=== PATIENT | female | born 1945 | race African-American/Black ===

== ENCOUNTER 2017-04-13 08:05 | Inpatient (IN) | payer OTHER ==
[2017-04-13] VITALS (15 sets, daily range): BP systolic 83–134; BP diastolic 53–72
[~2017-04-13] VITALS: Ht 157.5 cm; Wt 64.9 kg
--- NOTE | ~2017-04-13 | EKG ---
[address] [address] ELECTROCARDIOGRAM REPORT Name: ANN-MARIELIEN CARLOS Room #: 247-P ADM IN M.R.#: [id number] Admission: 04/13/17 Attend Phys: Gerardo Calhoun MD Discharge: Date of : 43 Report #: [id number] THIS REPORT FOR: //name// [facility] ED Test Date: 2017-04-13 Test Time: 08:29:14 Pat Name: LIEN JACOBSEN Department: Room: [facility] Gender: F Ride Mechanic: : 1945 Requested By: Peace Bailey Order Number: [id number] MD: Zachary Yu Measurements Intervals [place] Rate: 58 P: 58 VA: 194 QRS: -19 QRSD: 102 T: 29 QT: 465 QTc: 457 Interpretive Statements Sinus rhythm Borderline left axis deviation No previous ECG available for comparison Electronically Signed On 04-13-2017 20:21:13 CDT by Zachary Yu [email or web address] <ELECTRONICALLY SIGNED> By: Zachary Yu MD 04/13/172020 8 08 Zachary Yu MD /SABRINA
[2017-04-13 08:46] LABS: ANION GAP 8 mmol/L (7-16); BUN 42 mg/dL (7-18); CALCIUM 9.5 mg/dL (8.5-10.1); CHLORIDE 114 mmol/L (98-107); CO2 21 mmol/L (21-32); CREATININE 1.3 mg/dL (0.6-1.0); GLUCOSE 84 mg/dL (74-106); POTASSIUM 5.6 mmol/L (3.5-5.1); SODIUM 143 mmol/L (136-145)
[2017-04-13 08:50] LABS: ABSOLUTE NEUTROPHILS 4.4 thou/uL (1.4-8.2); BASOPHILS 0.5 % (0.0-2.0); EOSINOPHILS 0.7 % (0.0-3.0); HEMATOCRIT 32.2 % (37.0-47.0); HEMOGLOBIN 10.3 gm/dL (12.0-15.0); LYMPHOCYTES 9.9 % (24.0-44.0); MCH 26.6 pg (26.0-34.0); MCV 83.1 fL (80.0-100.0); MONOCYTES 2.3 % (1.0-8.0); PLATELET COUNT 309 thou/uL (150-400); POLYS 86.6 % (36.0-66.0); RBC 3.88 mil/uL (4.20-5.00); RDW 17.1 % (10.5-14.5); WBC 5.1 thou/uL (4.0-11.0)
[2017-04-13 08:52] LABS: ALBUMIN 3.7 g/dL (3.4-5.0); ALKALINE PHOSPHATASE 122 U/L (46-116); DIRECT BILIRUBIN < 0.1 mg/dL (<0.1-0.3); MANUAL DIFF NO; SGOT 33 U/L (15-37); SGPT 28 U/L (30-65); TOTAL BILIRUBIN 0.1 mg/dL (<0.1-1.0); TOTAL PROTEIN 7.5 g/dL (6.4-8.2)
[2017-04-13 08:54] LABS: URINE BILIRUBIN NEGATIVE (Negative); URINE BLOOD TRACE (Negative); URINE COLOR YELLOW; URINE GLUCOSE-RANDOM* NEGATIVE (Negative); URINE KETONES NEGATIVE (Negative); URINE NITRITE NEGATIVE (Negative); URINE PROTEIN (DIPSTICK) NEGATIVE (Negative); URINE UROBILINOGEN 0.2 E.U./dl (0.2-1.0)
[2017-04-13] MEDS ORDERED: AMLODIPINE BESY10 MG PO (11:19)
[2017-04-13] MEDS ORDERED: LIPITOR 20 MG T20 M1 PO (11:20)
[2017-04-13] MEDS ORDERED: FLONASE 0.05%50 MCG NASAL (11:21)
[2017-04-13] MEDS ORDERED: NEURONTIN 300300 M1 PO (11:21)
[2017-04-13] MEDS ORDERED: LANTUS100 UNIT/M SUBQ (11:22)
[2017-04-13] MEDS ORDERED: LISINOPRIL10 MG PO (11:23)
[2017-04-13] MEDS ORDERED: METFORMIN HCL500 MG PO (11:23)
[2017-04-13] MEDS ORDERED: PRILOSEC 20 MG20 MG PO (11:24)
[2017-04-14] VITALS (22 sets, daily range): BP systolic 90–159; BP diastolic 53–114
[2017-04-14 05:49] LABS: CALCIUM 8.3 mg/dL (8.5-10.1); CREATININE 1.2 mg/dL (0.6-1.0); HEMOGLOBIN 8.5 gm/dL (12.0-15.0); MCH 26.9 pg (26.0-34.0); MCHC 32.6 g/dL (28.0-37.0); MCV 82.3 fL (80.0-100.0); POTASSIUM 5.1 mmol/L (3.5-5.1); RBC 3.16 mil/uL (4.20-5.00); RDW 16.4 % (10.5-14.5); WBC 2.7 thou/uL (4.0-11.0)
[2017-04-15] VITALS (19 sets, daily range): BP systolic 102–153; BP diastolic 56–126
[2017-04-15 09:59] LABS: HEMATOCRIT 28.4 % (37.0-47.0); HEMOGLOBIN 9.4 gm/dL (12.0-15.0); MCHC 33.1 g/dL (28.0-37.0); MCV 81.4 fL (80.0-100.0); PLATELET COUNT 289 thou/uL (150-400); RBC 3.49 mil/uL (4.20-5.00); RDW 16.6 % (10.5-14.5); WBC 2.9 thou/uL (4.0-11.0)
[2017-04-15 10:02] LABS: MANUAL DIFF YES
[2017-04-15 10:08] LABS: CALCIUM 8.7 mg/dL (8.5-10.1); CREATININE 1.1 mg/dL (0.6-1.0); POTASSIUM 4.4 mmol/L (3.5-5.1)
[2017-04-15 11:07] LABS: ABSOLUTE NEUTROPHILS 1.8 thou/uL (1.4-8.2); ANISOCYTOSIS 1+; TOTAL CELL COUNT 100
[2017-04-16 04:18] VITALS: BP 118/72
[2017-04-16 05:10] LABS: ABSOLUTE NEUTROPHILS 2.1 thou/uL (1.4-8.2); BASOPHILS 1.1 % (0.0-2.0); EOSINOPHILS 2.7 % (0.0-3.0); HEMATOCRIT 27.9 % (37.0-47.0); HEMOGLOBIN 9.2 gm/dL (12.0-15.0); MCH 26.6 pg (26.0-34.0); MCHC 32.9 g/dL (28.0-37.0); MONOCYTES 8.4 % (1.0-8.0); PLATELET COUNT 275 thou/uL (150-400); POLYS 63.8 % (36.0-66.0); RBC 3.45 mil/uL (4.20-5.00); RDW 16.1 % (10.5-14.5); WBC 3.3 thou/uL (4.0-11.0)
[2017-04-16 05:14] LABS: MANUAL DIFF NO
[2017-04-16 05:19] LABS: CALCIUM 8.8 mg/dL (8.5-10.1); POTASSIUM 3.9 mmol/L (3.5-5.1)
== END 2017-04-16 13:34 | DRG 682 ==
LOC: ER 08:05 → EROBS 10:21 → ICU 10:21
PROVIDERS: Emergency Medicine; Family Medicine; Internal Medicine
DX: N17.9 Acute kidney failure, unspecified (principal); G93.40 Encephalopathy, unspecified; T68.XXXA Hypothermia, initial encounter; E11.649 Type 2 diabetes mellitus with hypoglycemia without coma; F03.90 Unspecified dementia, unspecified severity, without behavioral disturbance, psychotic disturbance, mood disturbance, and anxiety; E87.5 Hyperkalemia; Z79.899 Other long term (current) drug therapy; Z89.612 Acquired absence of left leg above knee; Z88.6 Allergy status to analgesic agent
CPT/HCPCS: 10203

== ENCOUNTER 2017-09-27 16:31 | Inpatient (IN) | payer OTHER ==
[~2017-09-27] VITALS: Ht 157.5 cm; Wt 62.1 kg
--- NOTE | ~2017-09-27 | EKG ---
[address] [address] ELECTROCARDIOGRAM REPORT Name: ANN-MARIELIEN Room #: 360-P ADM IN M.R.#: [id number] Admission: 09/27/17 Attend Phys: Mark Hart MD Discharge: Date of : 43 Report #: [id number] THIS REPORT FOR: //name// [facility] ED Test Date: 2017-09-27 Test Time: 16:33:59 Pat Name: LIEN JACOBSEN Department: Room: 360 Gender: F Traffic Rate Analyst: MARIA : 1945 Requested By: Opal Collins Order Number: [id number] MD: Zachary Yu Measurements Intervals [place] Rate: 53 P: 53 VA: 201 QRS: -10 QRSD: 107 T: 44 QT: 531 QTc: 499 Interpretive Statements Sinus rhythm Borderline ST elevation, lateral leads Compared to ECG 04/13/2017 08:29:14 Electronically Signed On 09-28-2017 7:23:47 CDT by Zachary Yu [email or web address] <ELECTRONICALLY SIGNED> By: Zachary Yu MD 09/28/17 07 32 32 Zachary Yu MD /SABRINA
[~2017-09-27 16:31] MED LIST: AMLODIPINE BESY10 MG PO; FLONASE 0.05%50 MCG NASAL; LANTUS100 UNIT/M SUBQ; LIPITOR 20 MG T20 M1 PO; LISINOPRIL10 MG PO; METFORMIN HCL500 MG PO; NEURONTIN 300300 M1 PO; PRILOSEC 20 MG20 MG PO
[2017-09-27 16:32] VITALS: BP 112/54
[2017-09-27 16:58] LABS: ABSOLUTE NEUTROPHILS 2.5 thou/uL (1.4-8.2); BASOPHILS 1.1 % (0.0-2.0); EOSINOPHILS 1.3 % (0.0-3.0); HEMATOCRIT 27.7 % (37.0-47.0); HEMOGLOBIN 8.9 gm/dL (12.0-15.0); LYMPHOCYTES 17.1 % (24.0-44.0); MCH 26.2 pg (26.0-34.0); MCHC 32.2 g/dL (28.0-37.0); MCV 81.4 fL (80.0-100.0); MONOCYTES 3.6 % (1.0-8.0); PLATELET COUNT 275 thou/uL (150-400); POLYS 76.9 % (36.0-66.0); RDW 16.6 % (10.5-14.5); WBC 3.3 thou/uL (4.0-11.0)
[2017-09-27 17:07] LABS: ANION GAP 8 mmol/L (7-16); BUN 24 mg/dL (7-18); CALCIUM 8.9 mg/dL (8.5-10.1); CHLORIDE 113 mmol/L (98-107); CO2 25 mmol/L (21-32); CREATININE 1.5 mg/dL (0.6-1.0); GLUCOSE 167 mg/dL (74-106); POTASSIUM 3.3 mmol/L (3.5-5.1); SODIUM 146 mmol/L (136-145)
[2017-09-27 17:15] LABS: ALBUMIN 3.1 g/dL (3.4-5.0); SGOT 23 U/L (15-37); SGPT 20 U/L (30-65); TOTAL BILIRUBIN 0.2 mg/dL (<0.1-1.0); TOTAL PROTEIN 6.6 g/dL (6.4-8.2); TROPONIN-I < 0.04 ng/mL (<0.06)
[2017-09-27] MEDS ORDERED: KLONOPIN0.5 MG PO (17:16)
[2017-09-27] MEDS ORDERED: PERCOCET 7.5-31 EACH PO (17:16)
[2017-09-27 17:21] LABS: URINE BILIRUBIN NEGATIVE (Negative); URINE BLOOD NEGATIVE (Negative); URINE CLARITY CLEAR; URINE COLOR YELLOW; URINE GLUCOSE-RANDOM* NEGATIVE (Negative); URINE KETONES NEGATIVE (Negative); URINE LEUKOCYTES NEGATIVE (Negative); URINE NITRITE NEGATIVE (Negative); URINE PROTEIN (DIPSTICK) NEGATIVE (Negative); URINE SPECIFIC GRAVITY 1.015 (1.005-1.035); URINE UROBILINOGEN 0.2 E.U./dl (0.2-1.0)
[2017-09-27] MEDS ORDERED: METFORMIN HCL500 MG PO (17:23)
[2017-09-27] MEDS ORDERED: MELATONIN3 MG PO (17:24)
[2017-09-27] MEDS ORDERED: LOPERAMIDE 2 MG2 M1 PO (17:24)
[2017-09-27] MEDS ORDERED: NOVOLOG100 UNIT/1 SUBQ (17:25)
[2017-09-27] MEDS ORDERED: VITAMIN D3400 UNIT PO (17:26)
[2017-09-27 18:22] LABS: PROTIME 10.4 Seconds (9.3-11.4)
[2017-09-27 19:05] VITALS: BP 134/58
[2017-09-27 19:42] VITALS: BP 125/62
[2017-09-27 20:25] VITALS: BP 138/58
[2017-09-28 00:17] VITALS: BP 134/61
[2017-09-28 04:30] VITALS: BP 129/60
[2017-09-28 09:41] LABS: CALCIUM 8.6 mg/dL (8.5-10.1); CREATININE 1.2 mg/dL (0.6-1.0)
[2017-09-28 09:44] LABS: POTASSIUM 4.3 mmol/L (3.5-5.1)
[2017-09-28] MEDS ORDERED: LOPERAMIDE 2 MG2 M1 PO (10:22)
[2017-09-28 11:36] VITALS: BP 122/63
[2017-09-28 15:52] VITALS: BP 141/68
[2017-09-28 19:16] VITALS: BP 133/74
[2017-09-29 04:27] VITALS: BP 113/49
[2017-09-29 05:15] LABS: HEMATOCRIT 25.9 % (37.0-47.0); HEMOGLOBIN 8.6 gm/dL (12.0-15.0); MCH 26.4 pg (26.0-34.0); MCHC 33.1 g/dL (28.0-37.0); MCV 79.6 fL (80.0-100.0); RBC 3.25 mil/uL (4.20-5.00); RDW 16.5 % (10.5-14.5); WBC 4.2 thou/uL (4.0-11.0)
[2017-09-29 05:31] LABS: CALCIUM 8.7 mg/dL (8.5-10.1); CREATININE 1.1 mg/dL (0.6-1.0); POTASSIUM 4.2 mmol/L (3.5-5.1)
[2017-09-29 07:19] VITALS: BP 111/66
[2017-09-29 11:12] VITALS: BP 118/65
[2017-09-29 15:11] VITALS: BP 118/69
== END 2017-09-29 17:12 | DRG 637 ==
LOC: ER 16:31 → 3W 18:53 → EROBS 18:53 → 3W 19:47
PROVIDERS: Hospitalist; Nurse Practitioner Family; Physician Assistant
DX: E11.649 Type 2 diabetes mellitus with hypoglycemia without coma (principal); E43 Unspecified severe protein-calorie malnutrition; N17.9 Acute kidney failure, unspecified; F03.90 Unspecified dementia, unspecified severity, without behavioral disturbance, psychotic disturbance, mood disturbance, and anxiety; T68.XXXA Hypothermia, initial encounter; D64.9 Anemia, unspecified; E86.0 Dehydration; E87.6 Hypokalemia; E11.40 Type 2 diabetes mellitus with diabetic neuropathy, unspecified; E78.5 Hyperlipidemia, unspecified; Z79.899 Other long term (current) drug therapy; Z89.512 Acquired absence of left leg below knee; Z88.6 Allergy status to analgesic agent; Z68.25 Body mass index [BMI] 25.0-25.9, adult
CPT/HCPCS: 10879

== ENCOUNTER 2018-01-09 16:52 | Inpatient (IN) | payer OTHER ==
[~2018-01-09] VITALS: Ht 157.5 cm; Wt 61.3 kg
[2018-01-09] VITALS (14 sets, daily range): BP systolic 114–160; BP diastolic 57–116
--- NOTE | ~2018-01-09 | EKG ---
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
--- NOTE | ~2018-01-09 | HC ---
[facility] [address] CONSULTATION Name: LIEN JACOBSEN Room #: 247-P ADM IN M.R.#: [id number] Admission: 01/09/18 Attend Phys: Gerardo Calhoun MD Discharge: Date of : 43 Report #: [id number] THIS REPORT FOR: //name// CC: Gerardo Russell REFERRING PHYSICIAN: Dr. Gerardo Calhoun. REASON FOR REFERRAL: Acute respiratory failure. HISTORY OF PRESENT ILLNESS: The patient is a 72-year-old female with diabetes mellitus type 2, difwbdbe-zz-lksvwi dementia, hypertension, brought to Emergency Room with an apparent altered mental status. She was unresponsive, was intubated on the field. A pulmonary consultation was requested. She resides at a nursing facility. She lives at [facility]. According to the staff, the patient was found to be unresponsive with no palpable pulse. CPR was administered. 911 was called. When EMS arrived, the patient's pulse was felt to be around 40 beats per minute with a systolic blood pressure of 80 mmHg. She was intubated in the field and subsequently transferred to the Emergency Room. On the field, the patient received atropine along with IV fluids. When she was in the ER, CT head was performed, which showed no acute changes. Her blood sugar was 27 mmHg. Dextrose was given. Repeat blood sugar was 111 mg/dL. Following administration of dextrose, patient's mental status appeared to have more improved. PAST MEDICAL HISTORY: Notable for diabetes mellitus type 2 with hyperlipidemia, neuropathy, dementia, generalized debility and weakness. PAST SURGICAL HISTORY: Left BKA. ALLERGIES: OXYCODONE, REACTION NOT SPECIFIED. MEDICATIONS: List from the skilled nursing is reviewed. This included vitamin D supplements, Imodium, Glucophage, melatonin, NovoLog insulin supplements, Lipitor, Flonase, Neurontin, Prilosec. FAMILY HISTORY: Noncontributory. SOCIAL HISTORY: Unknown. REVIEW OF SYSTEMS: Deferred as the patient is unable to answer questions. [facility] [address] [place] [address] CONSULTATION Name: LIEN JACOBSEN Room #: [facility] IN M.R.#: [id number] Admission: 01/09/18 Attend Phys: Gerardo Calhoun MD Discharge: Date of : 43 Report #: [id number] PHYSICAL EXAMINATION: GENERAL: She is now alert, extubated earlier this morning. She is in no apparent distress. VITAL SIGNS: Temperature 98.6 degrees Fahrenheit, pulse is 60, respiratory rate is 14, blood pressure 117/56 mmHg, saturation 100%. HEENT: Normocephalic, atraumatic. NECK: Supple. Negative lymphadenopathy or thyromegaly. CHEST: Breath sounds are clear bilaterally without any rales or wheezes. CARDIOVASCULAR: Normal S1, S2. There are no murmurs or gallop. There is no JVD. There is no carotid bruit. Pulses are 2+/4+ bilaterally. ABDOMEN: Soft, nontender, no organomegaly or masses felt. GENITOURINARY: Deferred. RECTAL: Deferred. EXTREMITIES: There is no edema, cyanosis or clubbing. LABORATORY DATA: Chest x-ray is clear. ET tube is approximately 1 cm at the zuleyma. CT head shows questionable mid brain and ricki low attenuation, otherwise there are no acute changes. Brain stem infarct cannot be excluded. A 2D mode echocardiogram showed normal LV function, ejection fraction approximately 55-60%, no shunting noted. Moderate mitral calcification with trace regurgitation, pulmonary artery pressure measuring 30 mmHg. Electrolytes, initial glucose was 26. Followup BMP, glucose was 148, electrolytes unremarkable except for creatinine of 1.6. WBC 5900, hemoglobin 8.7. Arterial blood gas revealed pH of 7.4, pCO2 of 39, pO2 of 629 on FiO2 of 100%. IMPRESSION: 1. Acute mental status change, encephalopathy in this 72-year-old female, probably due to profound hypoglycemia. No obvious evidence of CVA though questionable brainstem abnormalities. Neurologically, she is much more awake at this time. 2. Acute respiratory failure. Overnight, she was much more awake, alert, following commands. She was subsequently extubated. Currently stable with stable saturation. 3. Acute kidney injury due to above process. 4. Smzq-ml-sypurw dementia. 5. Progressive debility and weakness. 6. Hypothermia likely due to above process. RECOMMENDATION: Continue current care, follow blood glucose level closely as you are. Stable from pulmonary standpoint. Keep saturation at 92%. Wean O2 as tolerated. DVT and GI prophylaxis recommended. [address] [address] CONSULTATION Name: LIEN JACOBSEN Room #: 247-P ADM IN M.R.#: [id number] Admission: 01/09/18 Attend Phys: Gerardo Calhoun MD Discharge: Date of : 43 Report #: [id number] Thank you for this consultation. <ELECTRONICALLY SIGNED> By: Kenneth Krueger MD 01/11/18 1712 1254 1908 Kenneth Krueger MD /nt
--- NOTE | ~2018-01-09 | 2DMMODE ---
[facility] [address] [place] [address] 2 D/M-MODE ECHOCARDIOGRAM Name: LIEN JACOBSEN Room #: 247-P ADM IN M.R.#: [id number] Admission: 01/09/18 Attend Phys: Gerardo Calhoun, Discharge: Date of : 43 Date of Service: 01/10/18 1021 Report #: [id number] THIS REPORT FOR: //name// APPROVED REPORT Study performed: 01/10/2018 08:21:06 EXAM: Comprehensive 2D, Doppler, and color-flow Echocardiogram Patient Location: ICU Room #: [facility] Status: routine BSA: 1.64 HR: 60 bpm BP: 134/60 mmHg Other Information Study Quality: Good Indications Diabetes Hypertension/HDD Possible stroke 2D Dimensions RVDd: 32.59 mm LVEF(%): 57.57 (>50%) IVSd: 9.83 (7-11mm) LVOT Diam: 19.71 (18-24mm) LVDd: 42.58 mm PWd: 10.35 (7-11mm) Ascending Ao: 35.53 (22-36mm) LVDs: 29.80 (25-40mm) Aortic Root: 26.44 mm IVC: 18.00 mm Ruggiero's LVEF: 57.57 % Volumes Left Atrial Volume (Systole) Single Plane 4CH: 32.69 mL Single Plane 2CH: 55.36 mL LA ESV Index: 29.00 mL/m2 Aortic Valve AoV Peak Clifford.: 1.12 m/s AO Peak Gr.: 5.05 mmHg LVOT Max P.85 mmHg LVOT Max V: 0.84 m/s ANA Vmax: 2.29 cm2 Mitral Valve E/A Ratio: 0.8 [facility] [place] [address] 2 D/M-MODE ECHOCARDIOGRAM Name: LIEN JACOBSEN Room #: [address] [place] [address] IN .R.#: [id number] Admission: 01/09/18 Attend Phys: Gerardo Calhoun, Discharge: Date of : 43 Date of Service: 01/10/18 1021 Report #: [id number] MV Decel. Time: 206.74 ms MV E Max Clifford.: 1.03 m/s MV A Clifford.: 1.24 m/s MV PHT: 59.95 ms IVRT: 138.41 ms Pulmonary Valve PV Peak Clifford.: 1.08 m/s PV Peak Gr.: 4.65 mmHg Pulmonary Vein P Vein S: 0.58 m/s P Vein A: 0.38 m/s P Vein D: 0.32 m/s P Vein A Dur.: 147.6 msec P Vein S/D Ratio: 1.81 Tricuspid Valve TR Peak Clifford.: 2.53 m/s TR Peak Gr.: 25.65 mmHg PA Pressure: 30.00 mmHg Left Ventricle The left ventricle is normal size. There is normal LV segmental wall motion. Borderline concentric left ventricular hypertrophy. The left ventricular systolic function is normal. The left ventricular ejection fraction is within the normal range. LVEF is 55-60%. Grade I - abnormal relaxation pattern. Right Ventricle The right ventricle is normal size. The right ventricular systolic function is normal. Atria The left atrium size is normal. No shunting by contrast bubble injection The right atrium size is normal. Aortic Valve Aortic valve is calcified. No aortic regurgitation is present. There is no aortic valvular stenosis. Mitral Valve Moderate mitral annular calcification Trace mitral regurgitation. No evidence of mitral valve stenosis. Tricuspid Valve The tricuspid valve is normal in structure. There is trace tricuspid regurgitation. Estimated PAP 30 mmHg. There is no pulmonary hypertension. [facility] [address] [place] [address] 2 D/M-MODE ECHOCARDIOGRAM Name: LIEN JACOBSEN Room #: 247-P [facility] IN ..#: [id number] Admission: 01/09/18 Attend Phys: Gerardo Calhoun, Discharge: Date of : 43 Date of Service: 01/10/18 1021 Report #: [id number] Pulmonic Valve The pulmonary valve is normal in structure. There is no pulmonic valvular regurgitation. Great Vessels The aortic root is normal in size. IVC is normal in size and collapses >50% with inspiration. Pericardium There is no pericardial effusion. <Conclusion> The left ventricular systolic function is normal. There is normal LV segmental wall motion. LVEF is 55-60%. Mild diastolic dysfunction No shunting by contrast bubble injection Aortic valve is calcified. No aortic valvular stenosis or insufficiency. Moderate mitral annular calcification. Trace mitral regurgitation. There is trace tricuspid regurgitation. Estimated pulmonary artery pressure of 30 mmHg. There is no pericardial effusion. <ELECTRONICALLY SIGNED> By: Chente Gallegos MD, FACC 01/10/18 1021 1021 1021 Chente Gallegos MD, FACC /INF
[~2018-01-09 16:52] MED LIST changes: +KLONOPIN0.5 MG PO; +LOPERAMIDE 2 MG2 M1 PO; +MELATONIN3 MG PO; +NOVOLOG100 UNIT/1 SUBQ; +PERCOCET 7.5-31 EACH PO; +VITAMIN D3400 UNIT PO
[2018-01-09 17:09] LABS: HEMATOCRIT 26.2 % (37.0-47.0); HEMOGLOBIN 8.6 gm/dL (12.0-15.0); MCH 26.4 pg (26.0-34.0); MCHC 32.7 g/dL (28.0-37.0); MCV 80.8 fL (80.0-100.0); RBC 3.24 mil/uL (4.20-5.00); RDW 16.9 % (10.5-14.5); WBC 3.6 thou/uL (4.0-11.0)
[2018-01-09 17:17] LABS: ANION GAP 10 mmol/L (7-16); BUN 32 mg/dL (7-18); CALCIUM 9.3 mg/dL (8.5-10.1); CHLORIDE 113 mmol/L (98-107); CO2 25 mmol/L (21-32); CREATININE 1.6 mg/dL (0.6-1.0); POTASSIUM 3.9 mmol/L (3.5-5.1); SODIUM 148 mmol/L (136-145)
[2018-01-09 17:26] LABS: TROPONIN-I <0.06 ng/mL (<0.06)
[2018-01-09 17:28] LABS: GLUCOSE 27 mg/dL (74-106)
[2018-01-09 18:03] LABS: URINE BILIRUBIN NEGATIVE (Negative); URINE BLOOD NEGATIVE (Negative); URINE CLARITY CLEAR; URINE COLOR YELLOW; URINE GLUCOSE-RANDOM* NEGATIVE (Negative); URINE KETONES NEGATIVE (Negative); URINE LEUKOCYTES-REFLEX NEGATIVE (Negative); URINE NITRITE-REFLEX NEGATIVE (Negative); URINE PROTEIN (DIPSTICK) NEGATIVE (Negative); URINE UROBILINOGEN 0.2 E.U./dl (0.2-1.0)
[2018-01-09 18:55] LABS: BE(vivo) 0 mmol/L (-2 to +3); HCO3 24.5 mmol/L (22.0-26.0); PCO2 39.6 mmHg (35.0-45.0); PO2 629.2 mmHg (80.0-100.0); sO2 99.9 % (92.0-98.0)
[2018-01-10] VITALS (25 sets, daily range): BP systolic 100–151; BP diastolic 43–81
[2018-01-10 05:55] LABS: CALCIUM 8.6 mg/dL (8.5-10.1); CREATININE 1.3 mg/dL (0.6-1.0); MAGNESIUM 1.4 mg/dL (1.8-2.4); POTASSIUM 4.6 mmol/L (3.5-5.1)
[2018-01-10 06:00] LABS: HEMATOCRIT 26.7 % (37.0-47.0); HEMOGLOBIN 8.7 gm/dL (12.0-15.0); MCH 26.2 pg (26.0-34.0); MCHC 32.7 g/dL (28.0-37.0); MCV 80.2 fL (80.0-100.0); RBC 3.32 mil/uL (4.20-5.00); RDW 16.4 % (10.5-14.5); WBC 5.9 thou/uL (4.0-11.0)
[2018-01-11] VITALS (10 sets, daily range): BP systolic 136–165; BP diastolic 66–101
[2018-01-11 05:06] LABS: CALCIUM 8.7 mg/dL (8.5-10.1); CREATININE 1.1 mg/dL (0.6-1.0); MAGNESIUM 1.5 mg/dL (1.8-2.4); POTASSIUM 4.2 mmol/L (3.5-5.1)
[2018-01-11 06:47] LABS: HEMATOCRIT 29.7 % (37.0-47.0); HEMOGLOBIN 9.8 gm/dL (12.0-15.0); MCH 26.4 pg (26.0-34.0); MCHC 33.1 g/dL (28.0-37.0); MCV 79.7 fL (80.0-100.0); RBC 3.73 mil/uL (4.20-5.00); RDW 16.7 % (10.5-14.5); WBC 5.8 thou/uL (4.0-11.0)
[2018-01-12] VITALS: BP 155/70
[2018-01-12 02:00] VITALS: BP 148/74
[2018-01-12 04:00] VITALS: BP 140/73
[2018-01-12 06:00] VITALS: BP 110/64
[2018-01-12 07:07] LABS: HEMOGLOBIN 9.4 gm/dL (12.0-15.0); MCH 26.8 pg (26.0-34.0); MCHC 33.7 g/dL (28.0-37.0); MCV 79.5 fL (80.0-100.0); RBC 3.52 mil/uL (4.20-5.00); RDW 16.2 % (10.5-14.5); WBC 4.8 thou/uL (4.0-11.0)
[2018-01-12 07:15] LABS: CALCIUM 8.6 mg/dL (8.5-10.1); CREATININE 1.2 mg/dL (0.6-1.0); MAGNESIUM 1.3 mg/dL (1.8-2.4); POTASSIUM 4.2 mmol/L (3.5-5.1)
[2018-01-12] MEDS ORDERED: ASPIR 8181 MG PER TUBE (11:49)
== END 2018-01-12 14:00 | DRG 208 ==
LOC: ER 16:52 → ICU 18:30 → EROBS 18:30 → ICU 19:17
PROVIDERS: Emergency Medicine; Internal Medicine
PROC: 5A1935Z Respiratory Ventilation, Less than 24 Consecutive Hours (ICD-10-PCS; principal; 2018-01-09)
PROC: 0BH17EZ Insertion of Endotracheal Airway into Trachea, Via Natural or Artificial Opening (ICD-10-PCS; 2018-01-09)
DX: J96.00 Acute respiratory failure, unspecified whether with hypoxia or hypercapnia (principal); G93.40 Encephalopathy, unspecified; N17.0 Acute kidney failure with tubular necrosis; E87.0 Hyperosmolality and hypernatremia; E78.5 Hyperlipidemia, unspecified; E11.40 Type 2 diabetes mellitus with diabetic neuropathy, unspecified; F03.90 Unspecified dementia, unspecified severity, without behavioral disturbance, psychotic disturbance, mood disturbance, and anxiety; E11.649 Type 2 diabetes mellitus with hypoglycemia without coma; T68.XXXA Hypothermia, initial encounter; I12.9 Hypertensive chronic kidney disease with stage 1 through stage 4 chronic kidney disease, or unspecified chronic kidney disease; D63.8 Anemia in other chronic diseases classified elsewhere; E11.22 Type 2 diabetes mellitus with diabetic chronic kidney disease; N18.9 Chronic kidney disease, unspecified; E11.51 Type 2 diabetes mellitus with diabetic peripheral angiopathy without gangrene; E83.42 Hypomagnesemia; Z89.512 Acquired absence of left leg below knee; Z88.6 Allergy status to analgesic agent; Z89.612 Acquired absence of left leg above knee; Z79.82 Long term (current) use of aspirin; Z79.899 Other long term (current) drug therapy
CPT/HCPCS: 10078

== ENCOUNTER 2019-12-24 03:20 | Inpatient (IN) | payer OTHER ==
[~2019-12-24] VITALS: Ht 152.4 cm; Wt 55.3 kg
[2019-12-24] VITALS (38 sets, daily range): BP systolic 74–148; BP diastolic 26–92
[~2019-12-24 03:20] MED LIST changes: +ASPIR 8181 MG PER TUBE
[2019-12-24 03:47] LABS: HEMOGLOBIN 6.8 gm/dL (12.0-15.0); WBC 2.1 thou/uL (4.0-11.0)
[2019-12-24 03:49] LABS: HEMATOCRIT 21.1 % (37.0-47.0); MCH 26.4 pg (26.0-34.0); MCHC 32.1 g/dL (28.0-37.0); RBC 2.57 mil/uL (4.20-5.00); RDW 16.7 % (10.5-14.5)
[2019-12-24 03:53] LABS: ANION GAP 6 mmol/L (7-16); BUN 50 mg/dL (7-18); CALCIUM 8.6 mg/dL (8.5-10.1); CHLORIDE 113 mmol/L (98-107); CO2 27 mmol/L (21-32); CREATININE 2.7 mg/dL (0.6-1.0); GLUCOSE 98 mg/dL (74-106); SODIUM 146 mmol/L (136-145)
[2019-12-24] MEDS ORDERED: GAS RELIEF125 MG PO (03:57)
[2019-12-24] MEDS ORDERED: NOVOLOG100 UNIT/M SUBQ (03:58)
[2019-12-24] MEDS ORDERED: IMODIUM A-D2 M1 PO (03:59)
[2019-12-24] MEDS ORDERED: LORATIDINE 10 M10 M1 PO (03:59)
[2019-12-24] MEDS ORDERED: GLUCAGON EMERGEN1 MG SUBQ (04:00)
[2019-12-24] MEDS ORDERED: FAMOTIDINE 20 M20 MG PO (04:01)
[2019-12-24 04:02] LABS: ALBUMIN 2.7 g/dL (3.4-5.0); DIRECT BILIRUBIN < 0.1 mg/dL (<0.1-0.2); SGOT 26 U/L (15-37); SGPT 23 U/L (30-65); TOTAL BILIRUBIN < 0.1 mg/dL (0.2-1.0); TOTAL PROTEIN 5.7 g/dL (6.4-8.2); TROPONIN-I <0.06 ng/mL (<0.06)
[2019-12-24 04:37] LABS: URINE BILIRUBIN NEGATIVE (Negative); URINE BLOOD NEGATIVE (Negative); URINE CLARITY CLEAR; URINE COLOR YELLOW; URINE GLUCOSE-RANDOM* NEGATIVE (Negative); URINE KETONES NEGATIVE (Negative); URINE LEUKOCYTES-REFLEX NEGATIVE (Negative); URINE NITRITE-REFLEX NEGATIVE (Negative); URINE PROTEIN (DIPSTICK) NEGATIVE (Negative); URINE UROBILINOGEN 0.2 E.U./dl (0.2-1.0)
--- NOTE | 2019-12-24 07:31 | EKG ---
[facility] [place] [address] ELECTROCARDIOGRAM REPORT Name: LIEN JACOBSEN Room #: 246-P ADM IN M.R.#: [id number] Admission: 12/24/19 Attend Phys: Jenni Zaman MD Discharge: Date of : 43 Report #: [id number] THIS REPORT FOR: cc: Oscar Randle James D. DO Lundgren, Craig H. MD [facility] ~ THIS REPORT FOR: //name// [facility] ED Test Date: 2019-12-24 Test Time: 03:30:02 Pat Name: LIEN JACOBSEN Department: Room: [facility] Gender: F Contact Lens Polisher: no : 1945 Requested By: Becky Huffman Order Number: [id number] MD: Chente Gallegos Measurements Intervals [place] Rate: 48 P: 46 IL: 206 QRS: -11 QRSD: 102 T: 49 QT: 533 QTc: 477 Interpretive Statements Sinus bradycardia Otherwise no significant abnormality Compared to ECG 01/09/2018 18:06:00 Heart rate has slowed Electronically Signed On 12-24-2019 7:30:28 CDT by Chente Gallegos [email or web address] <ELECTRONICALLY SIGNED> By: Chente Gallegos MD, [facility] 12/24/19 0730 0330 0330 Chente Gallegos MD, [facility] /EPI
[2019-12-24 10:15] LABS: CALCIUM 8.9 mg/dL (8.5-10.1); CREATININE 2.4 mg/dL (0.6-1.0)
[2019-12-24 10:24] LABS: ALBUMIN 3.2 g/dL (3.4-5.0); TOTAL BILIRUBIN 0.2 mg/dL (0.2-1.0); TOTAL PROTEIN 7.2 g/dL (6.4-8.2)
--- NOTE | 2019-12-24 12:02 | 2DMMODE ---
[facility] [address] [place] [address] 2 D/M-MODE ECHOCARDIOGRAM Name: LIEN JACOBSEN Room #: 246-P ADM IN M.R.#: [id number] Admission: 12/24/19 Attend Phys: Jenni Zaman MD Discharge: Date of : 43 Report #: [id number] THIS REPORT FOR: cc: Oscar Randle James D. DO Lammoglia, Francisco J. MD ~ APPROVED REPORT Study performed: 12/24/2019 11:02:23 EXAM: Comprehensive 2D, Doppler, and color-flow Echocardiogram Patient Location: ICU Room #: 246 Status: routine BSA: 1.74 HR: 86 bpm BP: 133/45 mmHg Rhythm: NSR Other Information Study Quality: Adequate/patient curled up on her right side. Technically limited study due to uncooperative, combative patient. Not all measurements taken. Indications Bradycardia, HTN, HLD. 2D Dimensions IVSd: 10.47 (7-11mm) LVOT Diam: 19.86 (18-24mm) LVDd: 39.88 mm PWd: 9.32 (7-11mm) Ascending Ao: 28.20 (22-36mm) LVDs: 27.08 (25-40mm) Aortic Root: 28.33 mm Aortic Valve AoV Peak Clifford.: 1.43 m/s AO Peak Gr.: 8.19 mmHg LVOT Max P.96 mmHg LVOT Max V: 1.00 m/s ANA Vmax: 2.16 cm2 Mitral Valve E/A Ratio: 0.6 MV Decel. Time: 215.[address] [facility] [address] [place] [address] 2 D/M-MODE ECHOCARDIOGRAM Name: THOMAS JACOBSENINE Room #: 246-P [facility] IN [facility].#: [id number] Admission: 12/24/19 Attend Phys: Traci Sharp Discharge: Date of : 43 Report #: [id number] MV E Max Clifford.: 0.67 m/s MV A Clifford.: 1.15 m/s MV PHT: 62.35 ms Pulmonary Valve PV Peak Clifford.: 1.16 m/s PV Peak Gr.: 5.41 mmHg Tricuspid Valve TR Peak Clifford.: 2.44 m/s RAP Estimate: 5.00 mmHg TR Peak Gr.: 24.00 mmHg PA Pressure: 29.00 mmHg Left Ventricle The left ventricle is normal size. There is normal LV segmental wall motion. There is normal left ventricular wall thickness. Left ventricular systolic function is normal. LVEF is 60-65%. Mild diastolic dysfunction is present (impaired relaxation pattern). Right Ventricle The right ventricle is normal size. The right ventricular systolic function is normal. Atria The left atrium size is normal. The right atrium size is normal. Aortic Valve Aortic valve is mildly calcified. No aortic regurgitation is present. There is no aortic valvular stenosis. Mitral Valve Mitral valve leaflets are mildly thickened. Mild mitral annular calcification. Trace mitral regurgitation. No evidence of mitral valve stenosis. Tricuspid Valve The tricuspid valve is normal in structure. Trace tricuspid regurgitation. Estimated PAP is 30mmHg. Pulmonic Valve Pulmonic valve is not well visualized. Great Vessels The aortic root is normal in size. The ascending aorta is normal in size. IVC is normal in size and collapses >50% with [facility] [address] [place] [address] 2 D/M-MODE ECHOCARDIOGRAM Name: ANN-MARIELIEN Room #: 246-P [facility] IN M.R.#: [id number] Admission: 12/24/19 Attend Phys: Traci Sharp Discharge: Date of : 43 Report #: [id number] inspiration. Pericardium There is no pericardial effusion. <Conclusion> The left ventricle is normal size. LVEF is 60-65%. Aortic valve is mildly calcified. Mitral valve leaflets are mildly thickened. Mild mitral annular calcification. Trace mitral regurgitation. The tricuspid valve is normal in structure. Trace tricuspid regurgitation. Estimated PAP is 30mmHg. Pulmonic valve is not well visualized. There is no pericardial effusion. <ELECTRONICALLY SIGNED> By: Fahad Wheeler MD 12/24/19 1201 120 1201 Fahad Wheeler MD /INF
[2019-12-24] MEDS ORDERED: CALCIUM 600 +1 EA17 PO (12:19)
[2019-12-24] MEDS ORDERED: IRON18 M1 (12:24)
[2019-12-24] MEDS ORDERED: MAG-OXIDE400 MG PO (12:26)
[2019-12-24 13:40] LABS: HEMATOCRIT 30.1 % (37.0-47.0); MCH 26.4 pg (26.0-34.0); MCV 82.6 fL (80.0-100.0); RBC 3.64 mil/uL (4.20-5.00); RDW 17.4 % (10.5-14.5); WBC 3.5 thou/uL (4.0-11.0)
[2019-12-24 13:47] LABS: HEMOGLOBIN 9.6 gm/dL (12.0-15.0)
[2019-12-25] VITALS (25 sets, daily range): BP systolic 99–152; BP diastolic 38–64
[2019-12-25 06:09] LABS: ABSOLUTE NEUTROPHILS 3.2 thou/uL (1.4-8.2); BASOPHILS 1.4 % (0.0-2.0); EOSINOPHILS 0.4 % (0.0-3.0); HEMOGLOBIN 7.8 gm/dL (12.0-15.0); LYMPHOCYTES 14.8 % (24.0-44.0); MCH 26.6 pg (26.0-34.0); MCHC 32.6 g/dL (28.0-37.0); MCV 81.6 fL (80.0-100.0); MONOCYTES 5.5 % (1.0-8.0); PLATELET COUNT 263 thou/uL (150-400); POLYS 77.9 % (36.0-66.0); RBC 2.94 mil/uL (4.20-5.00); RDW 16.9 % (10.5-14.5); WBC 4.1 thou/uL (4.0-11.0)
[2019-12-25 06:26] LABS: CALCIUM 8.4 mg/dL (8.5-10.1); CREATININE 2.4 mg/dL (0.6-1.0); MAGNESIUM 2.6 mg/dL (1.8-2.4); POTASSIUM 5.4 mmol/L (3.5-5.1)
--- NOTE | 2019-12-25 07:48 | EKG ---
[facility] [place] [address] ELECTROCARDIOGRAM REPORT Name: LIEN JACOBSEN Room #: 246-P ADM IN M.R.#: [id number] Admission: 12/24/19 Attend Phys: Jenni Zaman MD Discharge: Date of : 43 Report #: [id number] THIS REPORT FOR: cc: Oscar Randle James D. DO Lundgren, Craig H. MD [facility] ~ THIS REPORT FOR: //name// [facility] Test Date: 2019-12-24 Test Time: 09:02:11 Pat Name: LIEN JACOBSEN Department: Room: 246 Gender: F It Recruiter: Ray KEN : 1945 Requested By: Jenni Zaman Order Number: [id number] MD: Chente Gallegos Measurements Intervals [place] Rate: 77 P: 56 CT: 215 QRS: -12 QRSD: 101 T: 69 QT: 422 QTc: 478 Interpretive Statements Sinus rhythm Borderline prolonged CT interval Compared to ECG 12/24/2019 03:30:02 Sinus bradycardia no longer present Electronically Signed On 12-25-2019 7:47:12 CDT by Chente Gallegos [email or web address] <ELECTRONICALLY SIGNED> By: Chente Gallegos MD, [facility] 12/25/19 0747 0902 09 Chente Gallegos MD, [facility] /EPI
[2019-12-26] VITALS (25 sets, daily range): BP systolic 82–148; BP diastolic 23–116
[2019-12-26 05:43] LABS: HEMATOCRIT 26.3 % (37.0-47.0); HEMOGLOBIN 8.4 gm/dL (12.0-15.0); MCH 26.3 pg (26.0-34.0); MCHC 32.1 g/dL (28.0-37.0); MCV 81.9 fL (80.0-100.0); RBC 3.21 mil/uL (4.20-5.00); RDW 16.8 % (10.5-14.5); WBC 3.2 thou/uL (4.0-11.0)
[2019-12-26 07:58] LABS: CALCIUM 8.7 mg/dL (8.5-10.1); CREATININE 1.8 mg/dL (0.6-1.0); POTASSIUM 4.6 mmol/L (3.5-5.1)
[2019-12-27] VITALS (15 sets, daily range): BP systolic 121–166; BP diastolic 43–91
[2019-12-28 00:45] VITALS: BP 151/94
[2019-12-28 04:45] VITALS: BP 152/91
[2019-12-28 08:34] VITALS: BP 129/94
[2019-12-28 09:06] VITALS: BP 129/94
== END 2019-12-28 13:39 | DRG 637 ==
LOC: ER 03:20 → ICU 06:15 → EROBS 06:15 → ICU 06:41 → 2N 12-27 14:39
PROVIDERS: Emergency Medicine; Nurse Practitioner; Nurse Practitioner Adult Health; ADMIT Hospitalist; ATTEND Hospitalist
PROC: 02HV33Z Insertion of Infusion Device into Superior Vena Cava, Percutaneous Approach (ICD-10-PCS; principal; 2019-12-24)
DX: E11.649 Type 2 diabetes mellitus with hypoglycemia without coma (principal); R57.1 Hypovolemic shock; G93.41 Metabolic encephalopathy; E43 Unspecified severe protein-calorie malnutrition; E87.0 Hyperosmolality and hypernatremia; I44.1 Atrioventricular block, second degree; N17.0 Acute kidney failure with tubular necrosis; Z20.828 Contact with and (suspected) exposure to other viral communicable diseases; E78.5 Hyperlipidemia, unspecified; F03.90 Unspecified dementia, unspecified severity, without behavioral disturbance, psychotic disturbance, mood disturbance, and anxiety; I95.9 Hypotension, unspecified; E11.51 Type 2 diabetes mellitus with diabetic peripheral angiopathy without gangrene; E11.42 Type 2 diabetes mellitus with diabetic polyneuropathy; D64.9 Anemia, unspecified; Z68.24 Body mass index [BMI] 24.0-24.9, adult; T68.XXXA Hypothermia, initial encounter; E55.9 Vitamin D deficiency, unspecified; E87.5 Hyperkalemia; E11.65 Type 2 diabetes mellitus with hyperglycemia; D72.819 Decreased white blood cell count, unspecified; I08.1 Rheumatic disorders of both mitral and tricuspid valves; Z89.512 Acquired absence of left leg below knee; Z88.6 Allergy status to analgesic agent
CPT/HCPCS: 10078; 10081; 10203

== ENCOUNTER 2020-02-06 22:14 | Inpatient (IN) | payer OTHER ==
[~2020-02-06] VITALS: Ht 157.5 cm; Wt 60.1 kg
[~2020-02-06 22:14] MED LIST changes: +CALCIUM 600 +1 EA17 PO; +FAMOTIDINE 20 M20 MG PO; +GAS RELIEF125 MG PO; +GLUCAGON EMERGEN1 MG SUBQ; +IMODIUM A-D2 M1 PO; +IRON18 M1; +LORATIDINE 10 M10 M1 PO; +MAG-OXIDE400 MG PO; +NOVOLOG100 UNIT/M SUBQ
[2020-02-06 22:31] VITALS: BP 91/39
[2020-02-06 23:28] LABS: PLATELET COUNT 264 thou/uL (150-400); WBC 6.2 thou/uL (4.0-11.0)
[2020-02-06 23:30] LABS: HEMOGLOBIN 6.5 gm/dL (12.0-15.0); MCH 27.2 pg (26.0-34.0); MCV 82.4 fL (80.0-100.0); RBC 2.39 mil/uL (4.20-5.00); RDW 18.3 % (10.5-14.5)
[2020-02-06 23:40] LABS: HEMATOCRIT 19.7 % (37.0-47.0)
[2020-02-07 00:02] LABS: CALCIUM 8.7 mg/dL (8.5-10.1); CREATININE 2.6 mg/dL (0.6-1.0); POTASSIUM 4.3 mmol/L (3.5-5.1)
[2020-02-07] MEDS ORDERED: GLIPIZIDE 10 MG10 MG PO (00:07)
[2020-02-07 00:08] LABS: ALBUMIN 2.5 g/dL (3.4-5.0); TOTAL BILIRUBIN 0.2 mg/dL (0.2-1.0); TOTAL PROTEIN 6.4 g/dL (6.4-8.2)
[2020-02-07] MEDS ORDERED: NOVOLOG100 UNIT/M SUBQ (00:08)
[2020-02-07 00:29] LABS: URINE BILIRUBIN NEGATIVE (Negative); URINE BLOOD TRACE (Negative); URINE CLARITY CLOUDY; URINE COLOR YELLOW; URINE GLUCOSE-RANDOM* NEGATIVE (Negative); URINE KETONES NEGATIVE (Negative); URINE NITRITE-REFLEX NEGATIVE (Negative); URINE PROTEIN (DIPSTICK) TRACE (Negative); URINE SPECIFIC GRAVITY 1.015 (1.005-1.035); URINE UROBILINOGEN 0.2 E.U./dl (0.2-1.0)
[2020-02-07 00:35] LABS: URINE LEUKOCYTES-REFLEX 3+ (Negative)
[2020-02-07 01:04] LABS: BACTERIA-REFLEX >30 Many /HPF (None Seen); CASTS None Seen /LPF (None Seen); CRYSTALS None Seen /LPF (None Seen); MUCUS 0-3 Light strn/LPF (None Seen); SQUAMOUS 0-3 Few /LPF (0-3); URINE RBC 0-2 Rare /HPF (0-2); URINE WBC-REFLEX 6-15 Few /HPF (0-5)
[2020-02-07 01:20] LABS: ABSOLUTE NEUTROPHILS 5.1 thou/uL (1.4-8.2)
[2020-02-07 01:21] LABS: LARGE PLATELETS FEW; PLATELET ESTIMATE NORMAL
[2020-02-07 06:37] VITALS: BP 110/74; BP 121/43; BP 122/74; BP 123/48
[2020-02-07 07:13] VITALS: BP 122/47
--- NOTE | 2020-02-07 07:38 | EKG ---
[facility] [place] [address] ELECTROCARDIOGRAM REPORT Name: LIEN JACOBSEN Room #: 359-P ADM IN M.R.#: [id number] Admission: 02/07/20 Attend Phys: Mark Hart MD Discharge: Date of : 43 Report #: [id number] THIS REPORT FOR: cc: Oscar Randle James D. DO Lundgren, Craig H. 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: Solo : 1945 Requested By: Vasile Rowley Order Number: [id number] MD: Chente Gallegos Measurements Intervals [place] Rate: 54 P: 48 SD: 174 QRS: -3 QRSD: 96 T: 61 QT: 440 QTc: 417 Interpretive Statements Sinus bradycardia Poor R wave progression Compared to ECG 02/06/2020 22:38:44 No significant changes Electronically Signed On 02-07-2020 7:38:36 CDT by Chente Gallegos [email or web address] <ELECTRONICALLY SIGNED> By: Chente Gallegos MD, [facility] 02/07/20 0738 0030 0030 Chente Gallegos MD, [facility] /EPI
--- NOTE | 2020-02-07 07:38 | EKG ---
[facility] [place] [address] ELECTROCARDIOGRAM REPORT Name: LIEN JACOBSEN Room #: 359- ADM IN M.R.#: [id number] Admission: 02/07/20 Attend Phys: Mark Hart MD Discharge: Date of : 43 Report #: [id number] THIS REPORT FOR: cc: Oscar Randle James D. DO Lundgren, Craig H. MD [facility] ~ THIS REPORT FOR: //name// [facility] ED Test Date: 2020-02-06 Test Time: 22:38:44 Pat Name: LIEN JACOBSEN Department: Room: [facility] Gender: F Change Control Manager: no : 1945 Requested By: Vasile Rowley Order Number: [id number] MD: Chente Gallegos Measurements Intervals [place] Rate: 52 P: 42 WI: 171 QRS: -3 QRSD: 97 T: 57 QT: 444 QTc: 413 Interpretive Statements Sinus bradycardia Poor R wave progression Compared to ECG 12/24/2019 09:02:11 No significant change was found Electronically Signed On 02-07-2020 7:38:00 CDT by Chente Gallegos [email or web address] <ELECTRONICALLY SIGNED> By: Chente Gallegos MD, [facility] 02/07/20 0738 2238 37 Chente Gallegos MD, [facility] /EPI
--- NOTE | 2020-02-07 08:02 | NUR ---
PT ARRIVED TO THE UNIT WITH ONE ED SENIOR SQL DBA, PT IS IN PROCESS OF RECEIVING A UNIT OF BLOOD TRANSFUSION, TRANSFUSION BEGAN AT ED, AND CONTINUING ON OUR FLOOR. UPON ARRIVAL THE SETTING WAS SET TO 150ML/HR AND APPROXIMATELY 2.5 HOURS OF INFUSING REMAINING. PT'S VS ARE STABLE (100% RA, 62HR, RR16, BP 134/51, TEMP 94.5) PT IS LETHARGIC, IMPULSIVE AND TRYING TO GET OUT OF BED. DOES NOT APPEAR TO BE IN PAIN, CURRENTLY RESTING AT THIS TIME. NO BELONGINGS PRESENT WITH THE PATIENT UPON ARRIVAL. BLOOD ADMINISTRATION WORK SHEET IN THE CHART, ED TRANSF[facility]ION [facility]. WILL UPDATE TRANSFUSION HERE.
[2020-02-07 08:30] VITALS: BP 134/51
[2020-02-07 10:40] VITALS: BP 110/47
[2020-02-07 14:37] LABS: HEMATOCRIT 26.7 % (37.0-47.0)
[2020-02-07 14:44] LABS: HEMOGLOBIN 8.6 gm/dL (12.0-15.0)
[2020-02-07 15:41] VITALS: BP 112/51
--- NOTE | 2020-02-07 16:08 | NUR ---
INITIAL ASSESSMENT: ETHAN reviewed chart and spoke with nursing and attending physician. Pt was admitted from [facility] due to anemia. Pt placed in Enhanced Isolation to r/o COVID-19. Pt's test is negative. Pt has received a blood transfusion. Plan is for pt to have an EGD tomorrow. ETHAN obtained DPOA ppwk from [facility]. DPOA is listed as Claudette Aleman. Alternate is Alicia Jauregui. Alicia listed as contact in [employer]. ETHAN spoke with Alicia via phone. Claudette Aleman is . Copy of ppwk faxed to [address] on pt's chart. Alicia confirmed plan is for pt to return to [facility] when medically stable. ETHAN provided update to [facility] post-acute liaison and faxed info/COVID test results for review. Pt will need a repeat COVID test with 48 hours of discharge. ETHAN is following to assist as needed with discharge planning.
[2020-02-07 20:04] VITALS: BP 136/49
--- NOTE | 2020-02-08 03:33 | NUR ---
PATIENT TRANSFERED FROM AT AROUND 1900.PATIENT AOX1 CONFUSED AND FORGETFUL. PATIENT HAS BEEN NPO THIS SHIFT FOR EGD IN THE AM. NO BLEEDING NOTED THIS SHIFT.PATIENT TURNED Q 2 HOURS. PATIENT INCONTIENT PERICARE AND BARRIER CREAM APPLIED NEEDED. FALL PRECAUTION IN PLACE. PATIENT IN BED ASLEEP AT THIS TIME BREATHING REGULAR AND UNLABOURED.
[2020-02-08 05:51] LABS: HEMATOCRIT 26.5 % (37.0-47.0); HEMOGLOBIN 8.3 gm/dL (12.0-15.0); MCH 27.4 pg (26.0-34.0); MCHC 31.2 g/dL (28.0-37.0); RBC 3.03 mil/uL (4.20-5.00); RDW 18.4 % (10.5-14.5); WBC 3.8 thou/uL (4.0-11.0)
[2020-02-08 05:54] LABS: MCV 87.6 fL (80.0-100.0)
[2020-02-08 06:03] LABS: CALCIUM 8.6 mg/dL (8.5-10.1); CREATININE 1.7 mg/dL (0.6-1.0); MAGNESIUM 1.6 mg/dL (1.8-2.4); POTASSIUM 4.7 mmol/L (3.5-5.1)
[2020-02-08 08:22] VITALS: BP 130/57
--- NOTE | 2020-02-08 10:49 | NUR ---
CARE TEAM INDICATED THAT PT IS TO HAVE AN EGD THIS DAY. REPEAT COVID TEST TO BE COMPLETED TODAY. IT HAD BEEN INDICATED THAT PT WILL LIKELY BE MEDICALLY STABLE TO DC BACK TO [facility] OVER THE WEEKEND. CM NOTIFIED DILCIA [facility]DA POST ACUTE LIAISON OF THE ABOVE. CM TO FOLLOW INDICATED WITH DC PLANNING.
--- NOTE | 2020-02-08 12:36 | NUR ---
PT IS FROM [facility] FAXED CLINICAL UPDATE SPOKE WITH DILCIA IN ADM SHE RECEIVED UPDATE. DP TO FOLLOW.
--- NOTE | 2020-02-08 17:48 | NUR ---
ASSUMED CARE OF PATIENT AT SHIFT CHANGE. ASSESSMENT CHARTED. MEDS GIVEN PER MAR CRUSHED IN APPLESAUCE. PATIENT HAD AN EGD DONE TODAY. WHEN RETURNED THE IV WAS LEAKING. PLACEMENT WAS ATTEMPTED BY ANGEL SALMON. PATIENT IS ORIENTED TO HERSELF AND CONFUSED. SHE STARTED TO CRY AFTER TALKING TO HER DAUGHTER. PATIENT IS VERY RESTLESS. BED ALARM IS ON AND PATIENT IS NEAR NURSES STATION. DENIES PAIN AND DOES NOT DISPLAY ANY SIGNS OF PAIN. VOICES NO OTHER NEEDS AT THIS TIME. WILL CONTINUE TO MONITOR AND FOLLOW PLAN OF CARE
[2020-02-08 19:35] VITALS: BP 140/54
--- NOTE | 2020-02-09 04:10 | NUR ---
PATIENT AOX1 CONFUSED AND FORGETFUL. NO S/S OF PAIN OR DISCOMFORT NOTED THIS SHIFT.NO BLEEDING NOTED THIS SHIFT. PATIENT INCONTIENT THIS SHIFT PERICARE AND BARRIER CREAM APPLIED NEEDED.PATIENT IMPULSIVE THIS SHIFT. PATIENT ENCOURAGED FLUIDS AND SNACKS THIS SHIFT. FALL PRECAUTION IN PLACE. PATIENT AWAKE IN BED TRYING TO CLIMB OUT OF THE BED. WILL CONTINUE TO MONITOR PATIENT FOR SAFETY.
[2020-02-09 07:27] VITALS: BP 149/71
--- NOTE | 2020-02-09 12:04 | NUR ---
Received awake on bed. A+O to self only; Hx dementia. On MS, not on telemetry; no chest pain, crushing sensation and heaviness. On room air; saturating at 100%. On soft fiber restricted; assisted and encouraged in eating and drinking; no nausea, no vomiting and no abdominal pain noted. On blood sugar monitoring; taken and recorded accordingly; with sliding scale ordered. A/w stool sample for stool occult. Incontinent of bowel and bladder, checked frequently and changed as needed. Falls bundle in place. Assisted in ADLs. With NS at 75cc/hr, infusing well at L FA. With L BKA- stump intact, no dressing in place; no bleeding and signs of infection noted. To continue monitoring patient. W/E patient case manager called and said pt needs covid swab.
[2020-02-09 14:52] VITALS: BP 137/72
[2020-02-09 22:36] VITALS: BP 140/65
[2020-02-09 22:37] VITALS: BP 140/65
[2020-02-10 07:24] VITALS: BP 184/97
--- NOTE | 2020-02-10 07:41 | NUR ---
ASSUMED PT CARE AROUND 1930. VSS. INSULIN HELD FOR EPISODE OF HYPOGLYCEMIA. ALERT BUT DOES NOT FOLLOW ANY VERBAL COMMANDS AT THIS TIME. NO S/S ACUTE DISTRESS NOTED OR REPORTED AT THIS TIME. CARE TRANSFERRED TO AM RN AT THIS TIME.
[2020-02-10 08:05] LABS: HEMATOCRIT 28.9 % (37.0-47.0); HEMOGLOBIN 9.4 gm/dL (12.0-15.0); MCH 27.1 pg (26.0-34.0); MCHC 32.6 g/dL (28.0-37.0); MCV 82.9 fL (80.0-100.0); RBC 3.49 mil/uL (4.20-5.00); RDW 18.1 % (10.5-14.5); WBC 4.5 thou/uL (4.0-11.0)
[2020-02-10 08:19] LABS: CALCIUM 8.5 mg/dL (8.5-10.1); CREATININE 1.3 mg/dL (0.6-1.0); POTASSIUM 3.6 mmol/L (3.5-5.1)
[2020-02-10 15:51] VITALS: BP 143/92
[2020-02-10 19:41] VITALS: BP 121/86
--- NOTE | 2020-02-10 21:19 | NUR ---
Assumed pt care this am, pt is a feeder and very confused ,medications taken with apple sauce. diet is tolerated well, frequent visits and hydration done through out the sift. POC followed with no signs or verbalizations of distress noted. Pt is able to turn on her own. endorsed tot he night nurse.
--- NOTE | 2020-02-11 04:08 | NUR ---
care assumed at 1900 patient was in bed asleep.patient aox1 confused and forgetful. fall precaution in place. patient in bed asleep at this time breathing regular and unlaboured.
[2020-02-11 05:50] LABS: HEMATOCRIT 26.6 % (37.0-47.0); HEMOGLOBIN 8.8 gm/dL (12.0-15.0); MCH 27.2 pg (26.0-34.0); MCHC 33.1 g/dL (28.0-37.0); MCV 82.3 fL (80.0-100.0); RBC 3.23 mil/uL (4.20-5.00); RDW 18.3 % (10.5-14.5); WBC 4.3 thou/uL (4.0-11.0)
[2020-02-11 06:04] LABS: CALCIUM 8.4 mg/dL (8.5-10.1); CREATININE 1.2 mg/dL (0.6-1.0); POTASSIUM 3.7 mmol/L (3.5-5.1)
[2020-02-11] MEDS ORDERED: PROTONIX40 M1 PO (10:56)
[2020-02-11] MEDS ORDERED: HUMALOG100 UNIT/1 SUBQ (11:06)
--- NOTE | 2020-02-11 14:49 | NUR ---
CARE TEAM INDICATED THAT PT IS MEDICALLY STABLE TO DC BACK TO [facility] THIS DAY. CHART COPY ORDERED. [facility]. [id number]. CM CALLED AND NOTIFIED PT'S DTR SHE IS AWARE AND AGREEABLE. REPORT TO BE CALLED TO . NO OTHER CM INTERVENTION INDICATED. CASE CLOSED.
--- NOTE | 2020-02-11 16:10 | NUR ---
Assumed patient care at 0715. Vital signs stable, LSCTA, Abdomen is soft and non-tender, BS x's 4, skin is clean, warm, dry and intact; she denies pain. Patient is alert and oriented to self. She is totally dependent of all cares. Patient is on room air. She is incontinent of bowel and bladder. Patient takes her medications crushed in applesauce. She has a poor appetite, is dependent on staff to feed her (she is on a Mechanical Altered Ground Diet). This nurse fed her oatmeal with milk and sugar in it this am. She consumed the entire bowl, kept saying "thank you mamma" to this nurse. Patient was not given any sliding scale Insulin at lunchtime, as she refused her meal. Patient is discharging within the next hour back to [facility].
--- NOTE | 2020-02-12 13:07 | PATH ---
[facility] [address] [place] [address] PATHOLOGY RPT PROCEDURE Name: LIEN JACOBSEN Room #: 452-P [facility] IN M.R.#: [id number] Admission: 02/07/20 Date of : 43 Discharge: 02/11/20 Report #: [id number] Path Case #: [id number] Note [facility] Accession Number: [id number] TESTS RESULT FLAG UNITS REF RANGE LAB Clinician Provided Cytology Information No. of containers..01 Other (Miscellaneous) Source: ESOPHAGEAL BRUSHING Clinician ICD10: N17.9 N39.0 DIAGNOSIS: 02 ESOPHAGEAL BRUSHING NEGATIVE FOR MALIGNANT EPITHELIAL CELLS. REACTIVE GASTRIC CELLS ARE PRESENT. BACTERIAL AGGREGATES WELL RARE SQUAMOUS EPITHELIAL CELLS PRESENT. NEGATIVE FOR VIRAL INCLUSIONS OR FUNGAL ORGANISMS. Pathologist ICD10: 02 K22.10 Signed out by: Bonnie Diaz MD, Pathologist NPI- [id number] Performed by: Tommy Preciado, Dry Finisher ([facility]) Gross description: DAVIDTIP, 1 TP /BALJINDER 02/11/2020 1110 Local FLAG LEGEND: L-Low Normal,H-High Normal,LL-Alert Low,HH-Alert High <-Panic Low,>-Panic High,A-Abnormal,AA-Critical Abnormal Performed at: [address] [place] [address] Harjinder Oquendo MD, [address] [address] Bonnie Diaz MD, Performed at: [address], [place], [place] [id number] MD Harjinder Oquendo MD Phone: [phone]
--- NOTE | 2020-02-14 09:01 | P ---
[facility] [place] [place] [address] PROCEDURE REPORT Name: LIEN JACOBSEN Room #: 452-P [facility] IN M.R.#: [id number] Admission: 02/07/20 Attend Phys: Neymar Wang MD Discharge: 02/11/20 Date of : 43 Report #: [id number] THIS REPORT FOR: cc: Oscar Randle James D. DO Thesing, John A. MD ~ CC: Neymar Randle INPATIENT UPPER ENDOSCOPY REPORT BRIEF HISTORY: The patient is a 74-year-old woman with recurring evidence of GI blood loss and anemia requiring blood transfusion. History is difficult as the patient has dementia and is unable to give much information whatsoever. She has been a resident of a nursing facility and was admitted to [facility] with a critically low hemoglobin requiring transfusion. She did have anemia earlier this year, but no specific evaluation was undertaken at that point in time. PREOPERATIVE DIAGNOSES: Anemia and gastrointestinal blood loss. POSTOPERATIVE DIAGNOSES: 1. Severe ulcerative esophagitis. 2. Moderately large hiatus hernia. 3. Multiple small duodenal ulcers. 4. Diffuse gastritis. MEDICATIONS: Deep sedation with propofol per anesthesia. SPECIMENS: 1. Biopsies of gastritis, rule out Helicobacter pylori. 2. Brushings of esophagus, rule out Suzy. 3. Biopsies of esophagus. ESTIMATED BLOOD LOSS: 3 mL. PROCEDURE: EGD with biopsy. FINDINGS: Prior to propofol sedation, procedure of upper endoscopy discussed with the patient as well as potential risks and its complications. She indicates she understands and desires to proceed. DESCRIPTION OF PROCEDURE: With the patient in left lateral position, the Olympus video endoscope was inserted in the cervical esophagus under direct vision without difficulty. Examination of this organ throughout its entire length revealed extensive ulceration throughout the esophagus. There was a small amount of normal-appearing mucosa in the very proximal several centimeters [facility] [address] [place] [address] PROCEDURE REPORT Name: LIEN JACOBSEN Room #: 452-P [facility] IN M.R.#: [id number] Admission: 02/07/20 Attend Phys: Neymar Wang MD Discharge: 02/11/20 Date of : 43 Report #: [id number] of the esophagus, but beyond that point, ulceration developed and 95% of the esophagus was essentially ulceration. No mass lesions were seen. No strictures were seen. There was also some blackish material, which may be fungal or could be old blood that was oozing from the esophagus. Active bleeding was not seen. Brushings were obtained of the esophagus for fungus and multiple biopsies were obtained. The scope was advanced into a moderately large hiatus hernia. The mucosa of hernia was unremarkable. Scope was then advanced into the stomach, was examined on end view as well as retroflexed views. There was a diffuse gastritis. No ulcers, erosions, AVMs, or bleeding lesions were seen. Upon retroflexion, the hiatus hernia was seen, but no mass lesions were identified. The pylorus was unremarkable. Examination of duodenal bulb and immediate postbulbar duodenum revealed multiple small ulcers. They were only several millimeters in greatest dimension. None were bleeding or exhibited signs of bleeding. At that point, the scope was slowly withdrawn and careful circumferential views were obtained. The patient tolerated the procedure well. DISPOSITION: The patient has extensive ulcerations of her esophagus consistent with severe esophagitis. This is likely the source of her blood loss. She also has the ulcers as noted. We will follow up on biopsies regarding H. pylori status and also esophageal biopsies. In addition, we will follow up on brushings of the esophagus as well. At this point in time, we will treat with twice daily PPI. If fungal organisms identified, we will add antifungal therapy. Also, mechanical measures such as elevation of the head of the bed and antireflux measures will be very important to this patient. <ELECTRONICALLY SIGNED> By: Kory Hillman MD 02/14/20 0901 1323 1752 Kory Hillman MD /nt
--- NOTE | 2020-02-15 16:06 | PATH ---
[facility] [place] [address] PATHOLOGY RPT PROCEDURE Name: LIEN JACOBSEN Room #: 452-P DIS IN M.R.#: [id number] Admission: 02/07/20 Date of : 43 Discharge: 02/11/20 Report #: [id number] Path Case #: [id number] [facility] Accession Number: [id number] . 01 Material submitted: . PART A: stomach - BX OF GASTRITIS PART B: esophagus - BX OF ESOPHAGITIS . 01 Clinical history: . A. Rule H. pylori . 02 Diagnosis: A. Gastric mucosa, gastritis, rule out H. pylori, endoscopic biopsy: - Moderate reactive gastropathy. - Negative for intestinal metaplasia or atrophy. - Negative for Helicobacter pylori (properly controlled immunohistochemical performed). . B. Gastroesophageal mucosa, esophagitis, endoscopic biopsy: - Marked active esophagitis with extensive ulceration. - Negative for intestinal metaplasia or dysplasia. . (IUV:pit 02/12/2020) QTP 02/12/2020 1445 Local . 02 Comment: Part B: GMS fungal special stain, CMV immunohistochemical stain and HSV I immunohistochemical stain are ordered and the results of these will be reported in an addendum to follow. (IUV:pit 02/12/2020) . 02 Addendum: . B. This addendum is issued subsequent to reviewing a properly controlled GMS fungal special stain as well as CMV immunohistochemical stain performed on block B1. The HSV1 immunohistochemical stain is pending at the time of the report and will be a topic of another addendum. There are no definitive fungal elements, or CMV viral inclusions present on the stains reviewed. The originally rendered interpretation as well as diagnosis remain unchanged. (IUV:katiuska; 02/13/2020) . . Professional services performed by [facility] at [facility], [address] [place] [address] [address], [place] [address]. Technical services performed by [facility] at [address] [place] [address], [address], [place] [address]. S/02/13/2020 Addendum Electronically Signed by Bonnie Diaz MD, Pathologist [facility] [address] [place] [address] PATHOLOGY RPT PROCEDURE Name: LIEN JACOBSEN Room #: 452-P DIS IN M.R.#: [id number] Admission: 02/07/20 Date of : 43 Discharge: 02/11/20 Report #: [id number] Path Case #: [id number] Addendum #2: This addendum is issued subsequent to reviewing a properly controlled HSV I* immunohistochemical performed at [facility]. It shows no definite viral inclusions present. The originally rendered interpretation as well as diagnoses remain unchanged. (IUV:pit 02/15/2020) . Professional services performed by [facility] at [facility], [address] , [place] [address]. Technical services performed by [facility], [address], [address], [place] [address]. . *This test was developed and its performance characteristics determined by [facility]. It has not been cleared or approved by the U.S. Food and Drug Administration. The FDA has determined that such clearance or approval is not necessary. This test is used for clinical purposes. It should not be regarded as investigational or for research. This laboratory is certified under the Clinical Laboratory Improvement Amendments of 1988 (CLIA) as qualified to perform high complexity clinical laboratory testing. IZV/02/15/2020 Addendum Electronically Signed by Bonnie Diaz MD, Pathologist . 02 Electronically signed: . Bonnie Diaz MD, Pathologist NPI- [id number] . 01 Gross description: . A. The specimen is received in formalin, labeled "Lien Jacobsen, BX of gastritis" and consists of multiple fragments of pink-earl tissue measuring 1.0 x 0.5 x 0.3 cm in aggregate which are entirely submitted in A1. . B. The specimen is received in formalin, labeled "Lien Jacobsen, BX of esophagitis" and consists of multiple fragments of earl-brown tissue measuring 1.5 x 0.7 x 0.3 cm in aggregate which are entirely submitted in B1. (SDY; 02/11/2020) SYU/SYU 02/11/2020 1316 Local . 02 Pathologist provided ICD-10: K31.9, K20.9, K22.10 . 02 CPT . 292451, 745179, W67568, W15007, 980741 Specimen Comment: A courtesy copy of this report has been sent to [phone], [phone] Specimen Comment: [phone], Specimen Comment: Report sent to , / Performed at: [facility] [address] [place] [address] PATHOLOGY RPT PROCEDURE Name: LIEN JACOBSEN Room #: 452-P DIS IN M.R.#: [id number] Admission: 02/07/20 Date of : 43 Discharge: 02/11/20 Report #: [id number] Path Case #: [id number] [address], [place], [place] [id number] MD Harjinder Oquendo MD Phone: [phone] Performed at: [address] [id number] MD Bonnie Diaz MD Phone: [phone]
== END 2020-02-11 17:05 | DRG 380 ==
LOC: ER 22:14 → EROBS 02-07 01:00 → 3W 02-07 01:00 → 4W 02-07 19:17
PROVIDERS: Emergency Medicine; Nurse Practitioner; Nurse Practitioner Family; ADMIT Hospitalist; ATTEND Hospitalist
PROC: 30233N1 Transfusion of Nonautologous Red Blood Cells into Peripheral Vein, Percutaneous Approach (ICD-10-PCS; principal; 2020-02-07)
PROC: 0DB68ZX Excision of Stomach, Via Natural or Artificial Opening Endoscopic, Diagnostic (ICD-10-PCS; 2020-02-08)
PROC: 0DB58ZX Excision of Esophagus, Via Natural or Artificial Opening Endoscopic, Diagnostic (ICD-10-PCS; 2020-02-08)
PROC: 0DD58ZX Extraction of Esophagus, Via Natural or Artificial Opening Endoscopic, Diagnostic (ICD-10-PCS; 2020-02-08)
DX: K22.10 Ulcer of esophagus without bleeding (principal); G93.41 Metabolic encephalopathy; N17.0 Acute kidney failure with tubular necrosis; E43 Unspecified severe protein-calorie malnutrition; N39.0 Urinary tract infection, site not specified; D62 Acute posthemorrhagic anemia; E46 Unspecified protein-calorie malnutrition; N17.9 Acute kidney failure, unspecified; K29.70 Gastritis, unspecified, without bleeding; K26.9 Duodenal ulcer, unspecified as acute or chronic, without hemorrhage or perforation; K21.0 Gastro-esophageal reflux disease with esophagitis; E78.5 Hyperlipidemia, unspecified; E11.40 Type 2 diabetes mellitus with diabetic neuropathy, unspecified; F03.90 Unspecified dementia, unspecified severity, without behavioral disturbance, psychotic disturbance, mood disturbance, and anxiety; K44.9 Diaphragmatic hernia without obstruction or gangrene; E11.51 Type 2 diabetes mellitus with diabetic peripheral angiopathy without gangrene; E86.0 Dehydration; E11.22 Type 2 diabetes mellitus with diabetic chronic kidney disease; I12.9 Hypertensive chronic kidney disease with stage 1 through stage 4 chronic kidney disease, or unspecified chronic kidney disease; N18.9 Chronic kidney disease, unspecified; G47.00 Insomnia, unspecified; Z89.512 Acquired absence of left leg below knee; Z88.6 Allergy status to analgesic agent; Z89.612 Acquired absence of left leg above knee; Z68.24 Body mass index [BMI] 24.0-24.9, adult; Z79.899 Other long term (current) drug therapy; Z03.818 Encounter for observation for suspected exposure to other biological agents ruled out
CPT/HCPCS: 10047; 62110; 62900; 70005

== ENCOUNTER 2020-03-24 08:35 | Inpatient (IN) | payer OTHER ==
[~2020-03-24] VITALS: Ht 165.1 cm; Wt 55.7 kg
[2020-03-24] VITALS (10 sets, daily range): BP systolic 74–114; BP diastolic 30–73
--- NOTE | ~2020-03-24 | EMS ---
[address] [address] EMS Patient Care Report Name: LIEN JACOBSEN Room #: PRE M.R.#: [id number] Admission: Attend Phys: Discharge: Date of : 43 Report #: [id number] THIS REPORT FOR: //name// Report Transmitted: 03/24/2020 08:06 EMS Care Summary [place], [place]/[facility] Incident [id number] @ 03/24/2020 08:02 Incident Location [address] [place] [address] Patient LIEN JACOBSEN Female, 75 Years 1945 Patient Address [address] [place], [place] [id number] Patient History Dementia,Diabetes,Hypertension (HTN),Kidney/Renal Failure,Seizures,Alzheimer's,Hyperlipidemia,Gastro-Esophageal Reflux Disease (GERD),Amputee,Type 2 Diabetes,None Reported, Patient Allergies Oxycodone, Patient Medications None Reported, Metformin, Amlodipine, Loratadine, Cholecalciferol, Famotidine, Magnesium Oxide, Atorvastatin, Simethicone, Loperamide, Novolog, Gabapentin, Chief Complaint HYPOGLYCEMIA Disposition Transported Lights/[place] Dispatch Reason Diabetic Problem Transported To [facility] [address] [place] [address] EMS Patient Care Report Name: LIEN JACOBSEN Room #: [facility] Sang#: [id number] Admission: Attend Phys: Discharge: Date of : 43 Report #: [id number] M528 ARRIVES TO FIND 75 Y/O F PT, UNRESPONSIVE. PT LAST SEEN NORMAL LAST NIGHT BEFORE BED. ASSESSMENTS AND TREATMENTS NOTED. PT MOVED TO COT VIA DRAWSHEET METHOD. PT MOVED TO AMBULANCE. PT TRANSPORTED. M528 ARRIVES AT DESTINATION. PT MOVED TO BED IN ROOM VIA DRAWSHEET METHOD. PT CARE TRANSFERRED. M528 RETURNS TO SERVICE. Initial Vitals @08:19P: 33,BP: 54/30, @08:14P: 32,R: 12,Pain: 0/10,GCS: 3,Glucose: 43,SpO2: 100, @08:33P: 58,R: 18,Pain: 0/10,GCS: 10,SpO2: 100, @08:30P: 92,BP: 139/92,GCS: 8, @08:17P: 32,R: 12,BP: 63/34,Pain: 0/10,GCS: 3,CO: 5,SpO2: 96,Revised Trauma: 6, @08:25P: 54,R: 18,BP: 113/65,Pain: 0/10,GCS: 3,SpO2: 100,Revised Trauma: 8, Assessments @08:12MENTAL:Unresponsive,SKIN:Diaphoresis,Cold,HEENT:LUNG SOUNDS:ABDOMEN:PELVIS//GI:EXTREMITIES:PULSE:NEURO:@08:32MENTAL:Confused,SKIN:H EENT:LUNG SOUNDS:ABDOMEN:PELVIS//GI:EXTREMITIES:PULSE:NEURO: Impression Diabetic Hypoglycemia Procedures @08:12ALS AssessmentResponse: UnchangedSucceeded@08:20Saline Lock 0cc (20 ga) Site: Antecubital-RightResponse: UnchangedSucceeded@08:153-Lead ECGResponse: UnchangedSucceeded@PTAGlucagon - 1 Milligrams (mg) - Intramuscular (IM)Response: Unchanged@08:25Dextrose 10% - 50 Milliliters (ml) - Intravenous (IV)Response: Improved@PTAGlucagon - 1 Milligrams (mg) - Intramuscular (IM)Response: Unchanged@08:20Oxygen FlowRate: 10 Device: Non Re-breather Mask (NRB) Response: UnchangedSucceeded@08:20NPA Response: UnchangedSucceeded Timeline APPOINTMENT MANAGER,Glucagon - 1 Milligrams (mg) - Intramuscular (IM),Response: Unchanged APPOINTMENT MANAGER,Glucagon - 1 Milligrams (mg) - Intramuscular (IM),Response: Unchanged 08:01,Call Received 08:01,Dispatch Notified 08:02,Dispatched 08:03,En Route 08:08,On Scene 08:12,At Patient 08:12,ALS Assessment,Response: UnchangedSucceeded, 08:14,BP: / M,PULSE: 32,RR: 12 R,SPO2: 100 Ox,ETCO2: ,B,PAIN: 0,GCS: 3, 08:15,3-Lead ECG,Response: UnchangedSucceeded, 08:17,BP: 63/34 M,PULSE: 32,RR: 12 R,SPO2: 96 Ox,ETCO2: ,BG: ,PAIN: 0,GCS: 3, [facility] [address] [place] [address] EMS Patient Care Report Name: THOMAS JACOBSENINE Room #: PRE M.R.#: [id number] Admission: Attend Phys: Discharge: Date of : 43 Report #: [id number] 08:19,BP: 54/30 M,PULSE: 33,RR: R,SPO2: Ox,ETCO2: ,BG: ,PAIN: ,GCS: , 08:20,Saline Lock 0cc 20 ga Site: Antecubital-Right,Response: UnchangedSucceeded, 08:20,Oxygen FlowRate: 10 Device: Non Re-breather Mask (NRB) Response: UnchangedSucceeded, 08:20,NPA Response: UnchangedSucceeded, 08:25,Dextrose 10% - 50 Milliliters (ml) - Intravenous (IV),Response: Improved 08:25,BP: 113/65 M,PULSE: 54,RR: 18 R,SPO2: 100 Ox,ETCO2: ,BG: ,PAIN: 0,GCS: 3, 08:25,Depart Scene 08:30,BP: 139/92 M,PULSE: 92,RR: R,SPO2: Ox,ETCO2: ,BG: ,PAIN: ,GCS: 8, 08:31,At Destination 08:33,BP: / M,PULSE: 58,RR: 18 R,SPO2: 100 Ox,ETCO2: ,BG: ,PAIN: 0,GCS: 10, 08:48,Call Closed Disclaimer v1.1 Copyright 2020 [employer] This EMS Care Summary contains data elements from the applicable legal record (which may be displayed differently). It is designed to provide pertinent information for the following purposes: continuity of care, clinical quality, and state data reporting. The complete legal record is available to ED staff and administrators of the receiving hospital in [employer]'s Patient Tracker. All data is provided "as is."
[~2020-03-24 08:35] MED LIST changes: +GLIPIZIDE 10 MG10 MG PO; +HUMALOG100 UNIT/1 SUBQ; +PROTONIX40 M1 PO
[2020-03-24 09:28] LABS: ABSOLUTE NEUTROPHILS 3.9 thou/uL (1.4-8.2); BASOPHILS 0.4 % (0.0-2.0); EOSINOPHILS 0.2 % (0.0-3.0); HEMATOCRIT 31.3 % (37.0-47.0); HEMOGLOBIN 10.1 gm/dL (12.0-15.0); LYMPHOCYTES 9.9 % (24.0-44.0); MCH 26.6 pg (26.0-34.0); MCHC 32.2 g/dL (28.0-37.0); MCV 82.6 fL (80.0-100.0); PLATELET COUNT 323 thou/uL (150-400); POLYS 87.5 % (36.0-66.0); RBC 3.79 mil/uL (4.20-5.00); RDW 17.8 % (10.5-14.5); WBC 4.5 thou/uL (4.0-11.0)
[2020-03-24 09:35] LABS: ANION GAP 11 mmol/L (7-16); BUN 54 mg/dL (7-18); CALCIUM 8.6 mg/dL (8.5-10.1); CHLORIDE 114 mmol/L (98-107); CO2 21 mmol/L (21-32); CREATININE 2.9 mg/dL (0.6-1.0); GLUCOSE 142 mg/dL (74-106); POTASSIUM 5.3 mmol/L (3.5-5.1); SODIUM 146 mmol/L (136-145)
[2020-03-24 09:45] LABS: BE(vivo) -8.4 mmol/L (-2 to +3); HCO3 19.6 mmol/L (22.0-26.0); PCO2 51.3 mmHg (35.0-45.0); PO2 181.3 mmHg (80.0-100.0); pH 7.199 (7.360-7.450); sO2 98.9 % (92.0-98.0)
[2020-03-24 09:45] LABS: ALBUMIN 2.5 g/dL (3.4-5.0); DIRECT BILIRUBIN < 0.1 mg/dL (<0.1-0.2); SGOT 33 U/L (15-37); SGPT 36 U/L (30-65); TOTAL BILIRUBIN 0.2 mg/dL (0.2-1.0); TOTAL PROTEIN 6.9 g/dL (6.4-8.2); TROPONIN-I <0.06 ng/mL (<0.06)
[2020-03-24 10:16] LABS: URINE BILIRUBIN NEGATIVE (Negative); URINE BLOOD TRACE (Negative); URINE CLARITY SL CLOUDY; URINE COLOR YELLOW; URINE GLUCOSE-RANDOM* NEGATIVE (Negative); URINE KETONES NEGATIVE (Negative); URINE LEUKOCYTES-REFLEX TRACE (Negative); URINE NITRITE-REFLEX NEGATIVE (Negative); URINE PROTEIN (DIPSTICK) TRACE (Negative); URINE UROBILINOGEN 0.2 E.U./dl (0.2-1.0)
[2020-03-24 10:24] LABS: AMP/METHAMP Negative (Negative); BARBITURATES Negative (Negative); BENZODIAZEPINES Negative (Negative); COCAINE Negative (Negative); METHADONE Negative (Negative); OPIATES Negative (Negative); PCP Negative (Negative)
--- NOTE | 2020-03-24 13:08 | EKG ---
[facility] [place] [address] ELECTROCARDIOGRAM REPORT Name: LIEN JACOBSEN Room #: 241-P ADM IN M.R.#: [id number] Admission: 03/24/20 Attend Phys: Gerardo Calhoun MD Discharge: Date of : 43 Report #: [id number] THIS REPORT FOR: cc: Oscar Randle James D. 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: [employer]HE[employer] : 1945 Requested By: Zack Moore Order Number: [id number] MD: Padilla Whitfield Measurements Intervals Dunnigan Rate: 65 P: 60 PA: 243 QRS: 3 QRSD: 114 T: 57 QT: 472 QTc: 491 Interpretive Statements Sinus rhythm Prolonged PA interval Consider left atrial enlargement Incomplete left bundle branch block Borderline prolonged QT interval Artifact in lead(s) I,II,III,aVR,aVL,V1,V2 Compared to ECG 02/07/2020 00:30:37 First degree AV block now present Left bundle-branch block now present Sinus bradycardia no longer present Poor R-wave progression no longer present Electronically Signed On 03-24-2020 13:08:23 CDT by Padilla Whitfield [email or web address] <ELECTRONICALLY SIGNED> By: Padilla Whitfield MD, [facility] 03/24/20 1308 [phone] Padilla Whitfield MD, [facility] /EPI
--- NOTE | 2020-03-24 19:23 | NUR ---
ASSUMED CARE AT 1215. PATIENT TRANSFERRED FROM ED. PATIENT PLACED ON 3 L OF O2. NO BM. NO UOP. PATIENT COMBATIVE WHEN ATTEMPTING TO PERFORM REYNOLD CARE OR OBTAIN TEMPERATURE. WOUNDS ON SACRUM, RT FOOT, AND FOREHEAD DOCUMENTED AND PHOTOGRAPHED. COVID NEGATIVE X1. DAUGHTER AND PATIENT UPDATED AND EDUCATED ON PLAN OF CARE AND PATIENT CONDITION. ENHANCED PRECAUTIONS DC'D. PATIENT NPO. BLOOD SUGARS UNDER CONTROL. POSSIBLE TRANSFER OUT OF ICU. PATIENT PROGRESSING TOWARDS THE PLAN OF CARE.
--- NOTE | 2020-03-24 20:43 | NUR ---
PATIENT TRANSFERED OUT OF THE ICU TO ROOM 203. PATIENT WAS TAKEN OFF HER OXYGEN SATING 100% ON ROOM AIR. PATIENT A&O TO SELF, SAYING "HI" TO EVERYONE THAT ENTERED HER ROOM. REPORT GIVEN TO ANGEL BARLOW ON . PT PROGRESSING TOWARDS GOAL. PTS DAUGHTER, NEELIMA, CALLED AND UPDATED ON HER MOTHERS CONDITION AND NEW ROOM NUMBER.
[2020-03-25] VITALS (60 sets, daily range): BP systolic 63–149; BP diastolic 23–71
--- NOTE | 2020-03-25 02:43 | NUR ---
Pt was transferred from ICU to about 2044. Upon arrival pt was alert and oriented to self only. Vital signs stable except for temperature. Unable to obtain temp. Shira hugger was ordered and placed on patient but temperature was still low. At midnight, it was noted that blood pressure was low. Pt was hypotensive. GRANITE FABRICATOR notified and Albumin was ordered. No changes in BP after albumin administeration. Pt's blood pressured was running in the 70's and 60's with a really low diastolic. GRANITE FABRICATOR was notified again and pt was transferred back to ICU to be closely monitored and placed on IV medication. RN updated daughter at 0243 on pt's status.
[2020-03-25 05:36] LABS: CALCIUM 8.5 mg/dL (8.5-10.1); CREATININE 3.2 mg/dL (0.6-1.0)
[2020-03-25 06:03] LABS: POTASSIUM 5.9 mmol/L (3.5-5.1)
[2020-03-25 06:05] LABS: HEMATOCRIT 28.1 % (37.0-47.0); HEMOGLOBIN 9.2 gm/dL (12.0-15.0); MCH 27.2 pg (26.0-34.0); MCHC 32.7 g/dL (28.0-37.0); MCV 83.2 fL (80.0-100.0); RBC 3.38 mil/uL (4.20-5.00); RDW 17.8 % (10.5-14.5); WBC 7.4 thou/uL (4.0-11.0)
--- NOTE | 2020-03-25 07:06 | NUR ---
PATIENT HAS 2 NEGATIVE COVID TESTS BUT WAS TRANSFERRED TO THEN BACK TO ICU, WILL NEED NEW ORDERS ONCE MEDICALLY APPROPRIATE.
--- NOTE | 2020-03-25 07:34 | NUR ---
ORDERS FOR EVAL AND TREAT HOWEVER Pt TRANSFERRED TO ICU. WILL HOLD OFF UNTIL ORDERS TO SEE WHEN APPROPRIATE
--- NOTE | 2020-03-25 09:06 | NUR ---
PT IS FROM [facility] FAXED CLINICAL UPDATE TO FACILITY SPOKE WITH SHERITA IN ADM SHE RECEIVED UPDATE.
[2020-03-25 10:17] LABS: URINE BILIRUBIN NEGATIVE (Negative); URINE BLOOD 2+ (Negative); URINE CLARITY HAZY; URINE COLOR YELLOW; URINE GLUCOSE-RANDOM* NEGATIVE (Negative); URINE KETONES NEGATIVE (Negative); URINE LEUKOCYTES-REFLEX 3+ (Negative); URINE NITRITE-REFLEX NEGATIVE (Negative); URINE PROTEIN (DIPSTICK) TRACE (Negative); URINE SPECIFIC GRAVITY 1.015 (1.005-1.035); URINE UROBILINOGEN 0.2 E.U./dl (0.2-1.0)
--- NOTE | 2020-03-25 10:20 | NUR ---
SPOKE W DTR EARLIER-UPDATED. IN,ORDERS NOTED. BLADDER SCAN FOR ZERO ML IN BLADDER (DONE TWICE). NOTIFIED .--VW
[2020-03-25 10:42] LABS: CRYSTALS None Seen /LPF (None Seen); HYALINE CASTS 0-3 Few /LPF (None Seen); SQUAMOUS 0-3 Few /LPF (0-3); YEAST-REFLEX Present (None Seen)
[2020-03-25 10:43] LABS: BACTERIA-REFLEX 1-9 Few /HPF (None Seen); URINE RBC None Seen /HPF (0-2)
--- NOTE | 2020-03-25 12:06 | NUR ---
VASCULAR ACCESS CONSULTED FOR CVAD. PT'S LABS,MEDS,HISTORY,ORDER AND CONSENT VERIFIED. PT HAS LEJ, RIJ WAS WIDELY PATENT WITH USG. 6FR TL POWER JACC 25CM INSERTED TO 5CM EXTERNAL. PT TOLERATED WELL. STAT CXR ORDERED.
--- NOTE | 2020-03-25 12:11 | NUR ---
chart review. pt from [facility]. pt has assistance with adls if needed. cm spoke with daughter mateo via phone call. she agrees when dr say mom medical stable can dc back to [facility]. updates to be sent to [facility]. will cont following as needed for dc needs.
--- NOTE | 2020-03-25 12:21 | NUR ---
CXR CONFIRMED IJ IN LOW SVC. IJ RELEASED FOR IMMEDIATE USE PER PROTOCOL TO TERRELL ORTIZ
[2020-03-25 16:23] LABS: CALCIUM 8.1 mg/dL (8.5-10.1); CREATININE 2.7 mg/dL (0.6-1.0); POTASSIUM 5.4 mmol/L (3.5-5.1)
[2020-03-25 17:53] LABS: TSH 0.941 uIU/mL (0.358-3.740)
--- NOTE | 2020-03-25 19:58 | NUR ---
1944- Nurse talked with patients daughter and updated her on patient status, answered her questions, and reviewed treatments.
--- NOTE | 2020-03-25 21:31 | NUR ---
Nurse talked with KNIFE EDGERZoey in regards to the necessity of the cat scan tonight. She expressed it can wait until morning.
[2020-03-26] VITALS (72 sets, daily range): BP systolic 34–226; BP diastolic 13–176
[2020-03-26 06:15] LABS: HEMATOCRIT 24.4 % (37.0-47.0); MCH 27.3 pg (26.0-34.0); MCHC 32.9 g/dL (28.0-37.0); MCV 82.9 fL (80.0-100.0); RBC 2.95 mil/uL (4.20-5.00); RDW 18.3 % (10.5-14.5); WBC 7.3 thou/uL (4.0-11.0)
[2020-03-26 06:19] LABS: CALCIUM 8.1 mg/dL (8.5-10.1); MAGNESIUM 1.7 mg/dL (1.8-2.4)
--- NOTE | 2020-03-26 06:22 | NUR ---
0620- Patient transported to Cat scan without difficulty. She is back in her room and tolerated Cat scan well. She was very motion filled during test. Patient progressing towards plan of care as evidenced by decreased infusion rate of levophed, room air status, awake and restless.
--- NOTE | 2020-03-26 17:45 | NUR ---
LEVOPHED OFF AT 1100. BP REMAINED STABLE IN THE 120s-140/50s-60s; PATIENT REMAINS ON ROOM AIR, O2 SATs >95%. NOT FOLLOWING COMMANANDS, SLEEPY/DROWSY MOST AFTERNOON. BG 120s-150s. WILL TRANSFER PATIENT TO CCU 206. DAUGHTER (NEELIMA) CALLED AND UPDATED ON STATUS AND POC.
--- NOTE | 2020-03-26 18:37 | NUR ---
ASSUMED CARE OF PT AT APPROX 1815 TRANSFER FROM ICU. SETTLED PT IN ROOM. PT IN NO APPARENT DISTRESS. GAVE REPORT TO ONCOMING NURSE.
[2020-03-27 00:14] VITALS: BP 121/53
[2020-03-27 04:20] VITALS: BP 152/73
[2020-03-27 06:02] LABS: HEMATOCRIT 24.8 % (37.0-47.0); HEMOGLOBIN 8.3 gm/dL (12.0-15.0); MCH 27.1 pg (26.0-34.0); MCHC 33.3 g/dL (28.0-37.0); MCV 81.6 fL (80.0-100.0); RBC 3.05 mil/uL (4.20-5.00); RDW 17.8 % (10.5-14.5); WBC 6.4 thou/uL (4.0-11.0)
[2020-03-27 07:00] LABS: ALBUMIN 2.1 g/dL (3.4-5.0); CALCIUM 8.2 mg/dL (8.5-10.1); CREATININE 2.7 mg/dL (0.6-1.0); PHOSPHORUS 3.7 mg/dL (2.5-4.9); POTASSIUM 4.8 mmol/L (3.5-5.1)
[2020-03-27 07:50] VITALS: BP 115/63
[2020-03-27 11:50] VITALS: BP 124/80
[2020-03-27 15:40] VITALS: BP 155/67
--- NOTE | 2020-03-27 15:56 | NUR ---
FAXED CLINICAL UPDATE TO [facility] OF RECEIVED CONFIRMATION AND LEFT MSG WITH SHERITA DAVALOS.
--- NOTE | 2020-03-27 18:35 | NUR ---
ASSESSMENT DOCUMENTED. VSS. PT REFUSED TURN Q2. PT RESTING IN BED WITH CALL LIGHT IN REACH. WILL CONTINUE TO MONITOR.
--- NOTE | 2020-03-27 18:43 | HC ---
[facility] [place] [address] CONSULTATION Name: LIEN JACOBSEN Room #: 206-P ADM IN M.R.#: [id number] Admission: 03/24/20 Attend Phys: Gerardo Calhoun MD Discharge: Date of : 43 Report #: [id number] THIS REPORT FOR: cc: Oscar Randle James D. DO Khosla, Parveen K. MD ~ CC: Oscar Calhoun DATE OF SERVICE: 03/25/2020 HISTORY OF PRESENT ILLNESS: This is a 75-year-old female patient who was evaluated by me for altered mental status. I reviewed the patient's records. I called the patient's daughter and talked to the patient's daughter. This patient lives in a assisted. She has been diagnosed with dementia. She does not remember dates and months. Sometimes she will remember the name of the children and sometime she will not. She is admitted with multiple problems. Her GFR is only 21, it has decreased; on 02/11/2020, it was 53. She does have renal problem. She was hypoglycemic and she has urinary tract infection. REVIEW OF SYSTEMS: A 14-point review of systems was attempted both from the daughter and the records. She had history of diabetes, amputation, pretty significant dementia, renal problem. That was a relevant 14-point review of system. She has a history of diabetes with hypoglycemia. She does have significant cognitive deficit. She has hypothermia. She has a history of neuropathy. PAST MEDICAL HISTORY: Positive for what looks like significant dementia. FAMILY HISTORY: Unremarkable. SOCIAL HISTORY: She lives in a assisted. PHYSICAL EXAMINATION: GENERAL: The patient's examination is pretty limited. She is lying in the bed. She does not open eyes on commands. She does not follow my finger. She does not move anything for me. She is pretty unresponsive. LUNGS: No respiratory difficulty. CARDIAC: Cardiac exam is unremarkable. VITAL SIGNS: Blood pressure is 101/33, respirations 10, pulse is 71, temperature is 99.3. LABORATORY DATA: Indicate a white count of 7.4. [facility] [address] [place] [address] CONSULTATION Name: LIEN JACOBSEN Room #: 206-P [facility] IN .R.#: [id number] Admission: 03/24/20 Attend Phys: Gerardo Calhoun MD Discharge: Date of : 43 Report #: [id number] IMPRESSION: This patient has a pretty significant underlying dementia. She has a superimposed encephalopathy because of hypoglycemia, urinary tract infections and kidney problems. I suggested to the daughter very conservative care in her case and mainly correcting those systemic problem and not doing much neurological workup. She is agreeable with that. I will do an EEG to make sure there is no seizure activity going on until that shows some overriding finding, I will suggest continue the evaluation and management of systemic problem and I will suggest talking to the family to be less aggressive on her. Please call us if any further followup is needed. Otherwise, I do not plan to follow up this patient. Thank you very much for this referral. <ELECTRONICALLY SIGNED> By: Palomo Fermin MD 03/27/20 1843 1708 25 Palomo Fermin MD /nt
--- NOTE | 2020-03-27 18:43 | EEG ---
[facility] [place] [address] ELECTROENCEPHALOGRAM Name: LIEN JACOBSEN Room #: 206-P ADM IN M.R.#: [id number] Admission: 03/24/20 Attend Phys: Gerardo Calhoun MD Discharge: Date of : 43 Report #: [id number] THIS REPORT FOR: //name// CC: Oscar Calhoun DATE OF SERVICE: 03/26/2020 INTERPRETATION: This patient is being evaluated for altered mental status. EEG was done by placing the electrode by standard 10-20 system of electrode placement. Both referential and sequential montages were used for recording. Background activity in this patient is poorly formed and it appeared to be about 6 Hz and 10 microvolt. Photic stimulation is unremarkable. The patient is obtunded. IMPRESSION: This is a severely abnormal EEG, which is slow and poorly formed. That is a nonspecific abnormality, which can occur with encephalopathy, effect of psychotropic medication, dementia, etc. Clinical correlation is recommended. <ELECTRONICALLY SIGNED> By: Palomo Fermin MD 03/27/20 1843 [id number] Palomo Fermin MD /nt
[2020-03-27 20:30] VITALS: BP 151/80
--- NOTE | 2020-03-28 02:58 | NUR ---
SLEEPING. EYES FLUTTER AT TIMES. REMAINS NON VERBAL AND UNRESPONSIVE. WORKING ON GOALS AND PLAN OF CARE FOR NOC. TURNED AND REPOSITIONED EVERY 2-3 HOURS FOR COMFORT AND SKIN CARE. NOT PROGRESSING TOWARDS DISCHARGE GOALS AT THIS TIME. CONTINUE TO ASSES CLOSELY.
[2020-03-28 04:45] VITALS: BP 113/46
[2020-03-28 06:47] LABS: HEMATOCRIT 23.5 % (37.0-47.0); HEMOGLOBIN 7.9 gm/dL (12.0-15.0); MCH 27.1 pg (26.0-34.0); MCHC 33.4 g/dL (28.0-37.0); RBC 2.9 mil/uL (4.20-5.00); RDW 17.7 % (10.5-14.5); WBC 9.1 thou/uL (4.0-11.0)
[2020-03-28 06:59] LABS: CALCIUM 7.9 mg/dL (8.5-10.1); CREATININE 2.3 mg/dL (0.6-1.0); PHOSPHORUS 3.9 mg/dL (2.5-4.9); POTASSIUM 4.1 mmol/L (3.5-5.1)
[2020-03-28 07:55] VITALS: BP 112/46
--- NOTE | 2020-03-28 08:10 | HC ---
[facility] [place] [address] CONSULTATION Name: LIEN JACOBSEN Room #: 206-P ADM IN M.R.#: [id number] Admission: 03/24/20 Attend Phys: Gerardo Calhoun MD Discharge: Date of : 43 Report #: [id number] THIS REPORT FOR: cc: Oscar Randle,Ryland Blancas MD ~ CC: Oscar Calhoun DATE OF SERVICE: 03/25/2020 CHIEF COMPLAINT: Abrasions to the forehead and sacral pressure ulceration. HISTORY OF PRESENT ILLNESS: This is a 75-year-old female patient who has been admitted to the ICU and I have been asked to see her with regard to wound care. She is somewhat obtunded, not able to provide any information about herself. The patient apparently lives at [facility]. She has been increasingly confused, was noted to have a low blood glucose and is admitted to ICU. PAST MEDICAL HISTORY: Noted for hypoglycemia, hypothermia, type 2 diabetes mellitus, hyperlipidemia, dementia, cognitive communication deficit, prior left below-knee amputation and previous left wrist fracture. SOCIAL HISTORY: Unknown other than she lives in a nursing care facility. FAMILY HISTORY: Unknown. REVIEW OF SYSTEMS: Unobtainable due to the fact that the patient is minimally responsive, unable to answer questions. ALLERGIES: OXYCODONE. MEDICATIONS: Include Imodium, vitamin D3, Glucophage, loratadine, glucagon, Lipitor, Neurontin, simethicone, iron. PHYSICAL EXAMINATION: VITAL SIGNS: At this time include, temperature 37.4, pulse 74, respiratory rate 11, blood pressure 109/51. GENERAL: This is a chronically ill-appearing female patient who appears to be in minimal distress. HEENT: Head demonstrates a small abrasion to the center portion of the forehead. There is a small, stable, a bit of eschar present. It is not ready to be peeled off yet. It is not infected. Nose and throat are clear. NECK: Supple. LUNGS: Diminished. [facility] [address] [place] [address] CONSULTATION Name: LIEN JACOBSEN Room #: 206- ADM IN M.R.#: [id number] Admission: 03/24/20 Attend Phys: Gerardo Calhoun MD Discharge: Date of : 43 Report #: [id number] HEART: Regular rhythm. ABDOMEN: Soft. Bowel sounds present. EXTREMITIES: Demonstrate what appears to be a left below-knee amputation that is well healed. She has what appears to be a pressure ulcer of the left ischial region, stage 3, very small and shallow. She has a firm area on the lateral fifth MTP region. LABORATORY STUDIES: Include sodium 146, potassium 5.9, chloride 114, BUN 52, creatinine 3.2. White blood cell count 7.4 with hemoglobin of 9.2. CLINICAL IMPRESSION: 1. Stage 3 pressure ulcer of the left ischial region. 2. Abrasion to the mid forehead. 3. Type 2 diabetes mellitus. 4. Cognitive communication deficits. 5. Dementia. 6. Acute kidney injury. RECOMMENDATIONS: At this point in time, recommend moisture barrier cream and bordered foam to the ____ ulcer, the forehead abrasion can be left open to air. Ongoing medical management for diabetes, hyperlipidemia, and neuropathy. She will need ongoing nutritional support. I appreciate being asked to see her in consultation. <ELECTRONICALLY SIGNED> By: Ryland Carr MD 03/28/20 0810 [id number] Ryland Carr MD /nt
--- NOTE | 2020-03-28 16:27 | NUR ---
Case discussed with the care team. Pt continues on ivf and iv atb x 2. No weekend dc anticipated. [facility] [place] is holding her ltc bed and can accept her for readmission when medically ready. Should she need continued iv atb they could accept her for SNF and request ins auth as early as Tuesday. Will follow.
[2020-03-28 16:55] VITALS: BP 121/80
[2020-03-28 20:50] VITALS: BP 165/49
[2020-03-29 04:38] LABS: HEMOGLOBIN 8.9 gm/dL (12.0-15.0); MCH 26.8 pg (26.0-34.0); MCHC 32.9 g/dL (28.0-37.0); MCV 81.5 fL (80.0-100.0); RBC 3.32 mil/uL (4.20-5.00); RDW 17.1 % (10.5-14.5); WBC 10.5 thou/uL (4.0-11.0)
[2020-03-29 04:42] LABS: CALCIUM 8.6 mg/dL (8.5-10.1); CREATININE 2.5 mg/dL (0.6-1.0); POTASSIUM 3.5 mmol/L (3.5-5.1)
[2020-03-29 04:45] VITALS: BP 115/73
--- NOTE | 2020-03-29 05:34 | NUR ---
ASSESSMENT DOCUMENTED.PT BEEN RESTING IN NO ACUTE DISTRESS.AWAKE ALMOST ALL NIGHT,PT DISORIENTED AND CONFUSED.DOES NOT MAKE NEEDS KNOWN BUT MUMBLES INCOMPREHESIBLE STATEMENTS.PT ABLE TO SIT UP IN THE BED W/O ASSIST.PAMELA MARCELO.FALL PRECAUTIONS IN PLACE.IVF INFUSING.PRAFO BOOT ON TO RIGHT FOOT.NO S/SX OF PAIN NOTED.WILL CONT TO MONITOR PER POC.
[2020-03-29 07:50] VITALS: BP 113/45
[2020-03-29 11:50] VITALS: BP 128/78
[2020-03-29 16:35] VITALS: BP 135/51
--- NOTE | 2020-03-29 17:23 | NUR ---
ASSUMED CARE AT SHIFT CHANGE, ALERT TO SELF ONLY, ASSESSMENT CHARTED. Q2 POSITIONED FOR COMFOR NEEDED, NO S&S OF PAIN OR DISCOMFORT.BG 59 AT LUNCH, AND TREATED PER PROTOCOL, NPO PER ST AND WILL CONTINUE WITH POC.
[2020-03-29 20:00] VITALS: BP 154/69
[2020-03-30 04:00] VITALS: BP 112/90
--- NOTE | 2020-03-30 05:03 | NUR ---
ASSESSMENT DOCUMENTED.PT BEEN RESTNG IN NO ACUTE DISTRESS.REMAINS CONFUSED AND NOT FOLLOWING COMMANDS.NPO PER SPEECH THERAPY.NO ACUTE DISTRESS NOTED.WILL CONT WITH POC.
[2020-03-30 07:45] VITALS: BP 133/104
[2020-03-30 12:21] VITALS: BP 128/57
[2020-03-30 16:00] VITALS: BP 143/55
--- NOTE | 2020-03-30 17:33 | NUR ---
ASSUMED CARE THIS MORNING, ALERT WITH MORNING ASSESSMENT, EYES FILLED WITH TEARS AND LOOKED SAD. PATIENT STATED THAT SHE WANTS TO GO HOME, AND TO CALL HER DAUGHTER. DAUGHTER CALLED AND CAME IN TO VISIT WITH PATIENT. BEDSIDE SWALLOW EVAL WAS DONE, PATIENT FAILED THE EVAL AND KEPT NPO. Q2 POSITIONED NEEDED FOR COMFORT, ASSESSMENT CHARTED, VSS AND WILL CONTINUE WITH POC.
[2020-03-30 20:30] VITALS: BP 128/47
[2020-03-31 04:48] LABS: HEMATOCRIT 23.7 % (37.0-47.0); MCHC 33.6 g/dL (28.0-37.0); MCV 80.4 fL (80.0-100.0); RBC 2.94 mil/uL (4.20-5.00); RDW 17.1 % (10.5-14.5); WBC 4.2 thou/uL (4.0-11.0)
[2020-03-31 04:55] LABS: CALCIUM 8.4 mg/dL (8.5-10.1); CREATININE 1.7 mg/dL (0.6-1.0)
--- NOTE | 2020-03-31 05:21 | NUR ---
ASSUMED PT CARE AT 1900. PT WAS INITIALLY DROWSY ON INITIAL ASSESSMENT BUT THE NOC PROGRESSED, PT BECAME MORE AWAKE AND SAID SOME WORDS. SHE IS STILL PRETTY MUCH CONFUSED. PT IS STABLE. GREAT U/O OVER NOC. POSSIBLE D/C TODAY TO FACILITY.
[2020-03-31 05:49] VITALS: BP 132/70
[2020-03-31 07:58] VITALS: BP 154/64
[2020-03-31 13:02] VITALS: BP 134/64
--- NOTE | 2020-03-31 16:37 | NUR ---
PT DISCHARGING TODAY TO [facility] FOR SKILLED STAY FAXED DC ORDERS/SUMMARY TO FACILITY SPOKE WITH SHERITA IN ADM SHE RECEIVED ORDERS AND ARRANGED TRANSPORT BY [facility] FOR [id number] TODAY. NOTIFIED PT'S DTR (NEELIMA) OF DC AND TIME OF TRANSPORT. UNIT NOTIFIED AND CHART COPY PER US. RN TO CALL REPORT TO [phone].
--- NOTE | 2020-03-31 17:35 | NUR ---
ASSUMED CARE PT SHIFT CHANGE. ASSESSMENTS CHARTED.MEDS GIVEN PER SEP. PT ALERT, PLEASANTLY CONFUSED THIS SHIFT. PT VERY AWAKE AND MOVING AROUND IN BED TODAY, ALTHOUGH REMAINS CONFUSED. EVAL BY SPEECH WITH PUREE DIET ORDERED, PT TOLERATED WELL. O2 SATS WNL ON ROOM AIR. DC ORDERS ACKNOWLEDGED AND IMPLEMENTED. REPORT CALLED TO FACILITY. PT LEFT UNIT WITH BELONGINGS.
== END 2020-03-31 17:29 | DRG 871 ==
LOC: ER 08:35 → ICU 10:45 → EROBS 10:45 → 2N 10:45 → ICU 11:55 → 2N 20:36 → ICU 03-25 02:25 → 2N 03-26 17:37
PROVIDERS: Emergency Medicine; Hospitalist; Psychiatry & Neurology Neuromuscular Medicine; ADMIT Internal Medicine; ATTEND Internal Medicine
PROC: 02HV33Z Insertion of Infusion Device into Superior Vena Cava, Percutaneous Approach (ICD-10-PCS; principal; 2020-03-25)
DX: A41.9 Sepsis, unspecified organism (principal); L89.893 Pressure ulcer of other site, stage 3; J69.0 Pneumonitis due to inhalation of food and vomit; R65.21 Severe sepsis with septic shock; G92 Toxic encephalopathy; N39.0 Urinary tract infection, site not specified; N17.9 Acute kidney failure, unspecified; E87.2 Acidosis; E44.0 Moderate protein-calorie malnutrition; E11.649 Type 2 diabetes mellitus with hypoglycemia without coma; E11.40 Type 2 diabetes mellitus with diabetic neuropathy, unspecified; F03.90 Unspecified dementia, unspecified severity, without behavioral disturbance, psychotic disturbance, mood disturbance, and anxiety; E78.5 Hyperlipidemia, unspecified; S00.81XA Abrasion of other part of head, initial encounter; Z20.828 Contact with and (suspected) exposure to other viral communicable diseases; X58.XXXA Exposure to other specified factors, initial encounter; F09 Unspecified mental disorder due to known physiological condition; E87.5 Hyperkalemia; E86.0 Dehydration; Y93.89 Activity, other specified; Z89.512 Acquired absence of left leg below knee; Y92.89 Other specified places as the place of occurrence of the external cause; Z79.4 Long term (current) use of insulin; Z79.84 Long term (current) use of oral hypoglycemic drugs; Z79.899 Other long term (current) drug therapy; Z88.5 Allergy status to narcotic agent; Z91.09 Other allergy status, other than to drugs and biological substances; Y99.8 Other external cause status; Z68.20 Body mass index [BMI] 20.0-20.9, adult
CPT/HCPCS: 10078; 10081

== ENCOUNTER 2020-07-08 14:57 | Emergency (ER) | payer OTHER ==
[~2020-07-08] VITALS: Ht 157.5 cm; Wt 67.1 kg
[2020-07-08 15:24] LABS: HEMATOCRIT 23.8 % (37.0-47.0); HEMOGLOBIN 7.2 gm/dL (12.0-15.0); MCHC 30.2 g/dL (28.0-37.0); MCV 86.2 fL (80.0-100.0); PLATELET COUNT 461 thou/uL (150-400); RBC 2.77 mil/uL (4.20-5.00); RDW 18.6 % (10.5-14.5)
[2020-07-08 15:26] LABS: BE(vivo) 2.7 mmol/L (-2 to +3); PCO2 55.4 mmHg (35.0-45.0); PO2 57.2 mmHg (80.0-100.0); pH 7.337 (7.360-7.450); sO2 87.5 % (92.0-98.0)
[2020-07-08 15:50] LABS: ABSOLUTE NEUTROPHILS 6.2 thou/uL (1.4-8.2); ANISOCYTOSIS 1+; METAMYELOCYTES 1 %
[2020-07-08 15:51] LABS: POLYCHROMASIA OCCASIONAL; TARGET CELLS OCCASIONAL
[2020-07-08 16:05] LABS: URINE BILIRUBIN NEGATIVE (Negative); URINE BLOOD NEGATIVE (Negative); URINE CLARITY SL CLOUDY; URINE COLOR YELLOW; URINE GLUCOSE-RANDOM* 3+ (Negative); URINE KETONES NEGATIVE (Negative); URINE LEUKOCYTES-REFLEX NEGATIVE (Negative); URINE NITRITE-REFLEX NEGATIVE (Negative); URINE PROTEIN (DIPSTICK) TRACE (Negative); URINE SPECIFIC GRAVITY 1.015 (1.005-1.035); URINE UROBILINOGEN 0.2 E.U./dl (0.2-1.0)
[2020-07-08 16:28] LABS: CALCIUM 9.2 mg/dL (8.5-10.1); CREATININE 3.1 mg/dL (0.6-1.0); POTASSIUM 5.2 mmol/L (3.5-5.1)
[2020-07-08 16:31] LABS: ALBUMIN 2.1 g/dL (3.4-5.0); MAGNESIUM 1.7 mg/dL (1.8-2.4); PHOSPHORUS 4.8 mg/dL (2.6-4.7); TOTAL BILIRUBIN 0.4 mg/dL (0.2-1.0); TOTAL PROTEIN 6.8 g/dL (6.4-8.2); TROPONIN-I 0.32 ng/mL (<0.06)
[2020-07-08 17:45] VITALS: BP 0/0
== END 2020-07-08 18:30 | disposition still patient (30) ==
LOC: ER 14:57
PROVIDERS: Emergency Medicine
DX: J96.90 Respiratory failure, unspecified, unspecified whether with hypoxia or hypercapnia (principal); E11.10 Type 2 diabetes mellitus with ketoacidosis without coma; E78.5 Hyperlipidemia, unspecified; E11.40 Type 2 diabetes mellitus with diabetic neuropathy, unspecified; F03.90 Unspecified dementia, unspecified severity, without behavioral disturbance, psychotic disturbance, mood disturbance, and anxiety; R10.9 Unspecified abdominal pain; R05 Cough; Z89.512 Acquired absence of left leg below knee; Z79.899 Other long term (current) drug therapy; Z79.4 Long term (current) use of insulin; Z88.6 Allergy status to analgesic agent; Z20.828 Contact with and (suspected) exposure to other viral communicable diseases